=== PATIENT | male | born 1950 | race Two or more races ===

== ENCOUNTER 2020-06-14 17:29 | Inpatient (IN) | payer MEDICARE, OTHER ==
[~2020-06-14] VITALS: Ht 167.6 cm; Wt 76.5 kg
[2020-06-14 17:56] VITALS: BP 171/95
--- NOTE | 2020-06-14 17:56 | NUR ---
ED Nurse Note: Pt from a [facility] and was brought in by ambulance due to abdominal pain, decreased in appetite and with constipation. Last bowel movement was 4 days ago. Noted abdominal distension. Pt is AAO x4, follows commands with non labored breathing.
[2020-06-14 18:22] LABS: BASOPHILS % (AUTO) 1.3 % (0.0-2.0); EOSINOPHILS % (AUTO) 0.2 % (0.0-3.0); HEMATOCRIT 39.3 % (42.0-52.0); HEMOGLOBIN 13.3 G/DL (14.2-18.0); LYMPHOCYTES % (AUTO) 11.7 % (20.0-45.0); MEAN CORPUSCULAR VOLUME 85 FL (80-99); MONOCYTES % (AUTO) 7.8 % (1.0-10.0); PLATELET COUNT 257 K/UL (150-450); RED BLOOD COUNT 4.62 M/UL (4.70-6.10); WHITE BLOOD COUNT 12.4 K/UL (4.8-10.8)
[2020-06-14 18:31] LABS: ANION GAP 14 mmol/L (5-15); BLOOD UREA NITROGEN 70 mg/dL (7-18); CALCIUM 9.4 MG/DL (8.5-10.1); CARBON DIOXIDE 28 MMOL/L (21-32); CHLORIDE 87 MMOL/L (98-107); CREATININE 4.9 MG/DL (0.55-1.30); POTASSIUM 3.1 MMOL/L (3.5-5.1); SODIUM 129 MMOL/L (136-145)
[2020-06-14 18:38] LABS: AMMONIA 20 umol/L (11-32)
[2020-06-14 18:39] LABS: ALANINE AMINOTRANSFERASE 36 U/L (12-78); ALBUMIN 4.3 G/DL (3.4-5.0); ALBUMIN/GLOBULIN RATIO 1.2 (1.0-2.7); ALKALINE PHOSPHATASE 78 U/L (46-116); ASPARTATE AMINO TRANSFERASE 31 U/L (15-37); BILIRUBIN,TOTAL 0.4 MG/DL (0.2-1.0)
[2020-06-14] MEDS ORDERED: Acetaminophen 500mg (ES) tab ORAL ONE (18:45)
[2020-06-14] MEDS ORDERED: cefTRIAXone 2 GM in NS 55 ML IVPB ONE (18:45)
--- NOTE | 2020-06-14 19:08 | NUR ---
HAND-OFF: Report given to irene DUQUE.
--- NOTE | 2020-06-14 19:20 | NUR ---
ED Nurse Note: Patient's pulse oximetry reading on room air was 91%. Applied oxygen 2L via N/C and improved to 96%. ERMD made aware.
[2020-06-14] MEDS ORDERED: Pantoprazole Inj IVP ONE (20:00)
[2020-06-14] MEDS ORDERED: Miralax 17gm pkt ORAL PRN (20:30)
[2020-06-14] MEDS ORDERED: Nitroglycerin Subl 0.4mg tab SL PRN (20:30)
[2020-06-14] MEDS ORDERED: Labetalol 5mg/ml 20ml vial IV PRN (20:45)
[2020-06-14] MEDS ORDERED: Enalaprilat 2.5mg/2ml Inj IV PRN (20:45)
--- NOTE | 2020-06-14 20:50 | NUR ---
ED Nurse Note: US at bedside
[2020-06-14 21:00] VITALS: BP 145/80
[2020-06-14] MEDS: Heparin 5000 units/ml inj SUBQ SCH (21:00)
--- NOTE | 2020-06-14 21:04 | NUR ---
ED Nurse Note: urine sent to lab
[2020-06-14 21:10] LABS: APPEARANCE,URINE CLEAR; BILIRUBIN, URINE NEGATIVE (NEGATIVE); COLOR,URINE PALE YELLOW; GLUCOSE, URINE (UA) NEGATIVE (NEGATIVE); KETONES,URINE NEGATIVE (NEGATIVE); LEUKOCYTE ESTERASE ,URINE 1+ (NEGATIVE); NITRITE,URINE NEGATIVE (NEGATIVE); PH,URINE 5 (4.5-8.0); PROTEIN,URINE NEGATIVE (NEGATIVE); UROBILINOGEN,URINE NORMAL MG/DL (0.0-1.0)
--- NOTE | 2020-06-14 21:22 | Diagnostic Imaging Report ---
EXAM: CT Abdomen and Pelvis Without Intravenous Contrast CLINICAL HISTORY: PAIN Pt from a [facility] and was brought in by ambulance due to abdominal pain, decreased in appetite and with constipation. Last bowel movement was 4 days ago. Noted abdominal distension. Pt is AAO x4, follows commands with non labored breathing. TECHNIQUE: Axial computed tomography images of the abdomen and pelvis without intravenous contrast. CTDI is 8 mGy and DLP is 491 mGy-cm. One or more of the following dose reduction techniques were used: automated exposure control, adjustment of the mA and/or kV according to patient size, use of iterative reconstruction technique. Coronal and sagittal reformatted images were created and reviewed. COMPARISON: No relevant prior studies available. FINDINGS: Lung bases: Respiratory motion artifact limits evaluation of the lung bases, patchy ill-defined groundglass or mosaic attenuation of the lungs and dependent atelectasis present. ABDOMEN: Liver: Unremarkable. Gallbladder and bile ducts: Cholelithiasis without findings to suggest acute cholecystitis. No ductal dilation. Pancreas: Unremarkable. No ductal dilation. Spleen: Unremarkable. No splenomegaly. Adrenals: Unremarkable. No mass. Kidneys and ureters: Massive prostatomegaly with severely distended urinary bladder and bilateral moderate hydroureteronephrosis could represent obstructive uropathy. Stomach and bowel: Distended fluid-filled large and small bowel loops suggests ileus, no findings to suggest suzi obstruction. Ascending colon diameter 8 cm. No mucosal thickening. PELVIS: Appendix: No findings to suggest acute appendicitis. Bladder: Unremarkable. No stones. Reproductive: Prostate 7 cm transverse. ABDOMEN and PELVIS: Intraperitoneal space: Unremarkable. No free air. No significant fluid collection. Bones/joints: No acute fracture. No dislocation. Soft tissues: Unremarkable. Vasculature: Unremarkable. No abdominal aortic aneurysm. Lymph nodes: Unremarkable. No enlarged lymph nodes. IMPRESSION: 1. Massive prostatomegaly with severely distended urinary bladder and bilateral moderate hydroureteronephrosis could represent obstructive uropathy. 2. Recommend James catheterization. 3. Distended fluid-filled large and small bowel loops suggests ileus, no findings to suggest suzi obstruction. 4. Respiratory motion artifact limits evaluation of the lung bases, patchy ill-defined groundglass or mosaic attenuation of the lungs and dependent atelectasis present. 5. Cholelithiasis without findings to suggest acute cholecystitis.
--- NOTE | 2020-06-14 21:23 | Emergency Room Report ---
History of Present Illness General Chief Complaint: Abdominal Pain Source: Patient, EMS Present Illness HPI History of present illness: 70M unknown PMHx BIB board and care. Patient is complaining of abdominal distention. Also complains of dark stools, nausea, and cough. The patient's symptoms were gradual onset, severity was moderate, duration since several days. Denies fevers, chills, vomiting, chest pain, phlegm or SOB. Past medical history: unable to determine Past surgical history: denies Smoking: denies Alcohol use: previous but quit Drug use: denies Review of systems: CONST: No fevers or chills, No night sweats PULMONARY: No productive cough, No shortness of breath CARDIAC: No chest pain, No palpitations GI: + vomiting, dark stools; No diarrhea , No_BRBPR : No dysuria, No hematuria, No discharge NEURO: No new_focal_weakness_or_numbness, No confusion, No vision changes 14 point Review of Systems is otherwise negative except per HPI Physical Exam: GENERAL: Awake_alert_ nontoxic, no acute distress Spo2 90% on RA, normal EYES: Extraocular muscles are intact. Conjunctivae clear. Lids without swelling ENT: External nose and ear normal_in_appearance. Oropharynx clear. Head_ atraumatic, Moist_oral_mucosa NECK: No JVD. No meningismus. No thyromegaly. Supple. Trachea midline RESP: Normal respiratory effort. Symmetric rise. No stridor. Clear_to_ auscultation_No_rales_No_wheezes CARDIAC: Regular rate and regular rhythm on_auscultation No_significant pedal edema. ABDOMEN: Soft. Markedly distended. Diffuse TTP. Nontender_No_rebound_or_ guarding. NO CVA TTP. MSK: Normal muscle tone, without rigidity. Extremities without asymmetric deformity or swelling. SKIN: Warm and dry. No visible cyanosis or pallor NEUROLOGIC: Alert, oriented x3. Motor_and_sensation_grossly_intact. No truncal ataxia. Gait_normal Psych: Normal mood and affect, normal judgment and insight - COORDINATION OF CARE Case was discussed with: Patient, Patient's Physician Any labs [and imaging] that were ordered were interpreted as part of the medical decision making: Medical Decision Making/Plan: Differential diagnosis includes appendicitis, diverticulitis, SBO versus ileus, kidney stone, small bowel obstruction, volvulus, AAA, pancreatitis, among others. 70-year-old male presents with abdominal distention. Bedside ultrasound shows her trace ascites. CT scan shows small bowel obstruction and severe hydronephrosis and BPH. NG tube was placed with gastric contents suctions. James placed with retrieval at 1500 mL retreived. Patient was noted to have melena during ER visit. He was given Protonix and Rocephin. Labs are concerning for new onset renal failure with creatinine of 4.9. There is no previous creatinine to compare to. Suspect post obstructive. James placed. He is also mildly hyponatremic at 129. I spoke with Dr. Whitehead, and reviewed the patients presentation, workup, results, and treatment. They will admit the patient for further care and evaluation, and assume care of the patient at this time. Allergies: Coded Allergies: No Known Allergies (Unverified , 06/14/20) COVID-19 Screening Contact w/high risk pt: Yes Experienced COVID-19 symptoms?: Yes COVID-19 Testing performed OCEAN FREIGHT MANAGER: No Nursing Documentation-[facility] Past Medical History: No History, Except For Hx Diabetes: Yes Physical Exam Vital Signs Date Time Temp Pulse Resp B/P (MAP) Pulse Ox O2 Delivery O2 Flow Rate FiO2 06/14/20 17:46 98.2 78 16 142/85 (104) 90 Room Air Sp02 EP Interpretation: reviewed, normal Medical Decision Making Diagnostic Impression: Primary Impression: SBO (small bowel obstruction) Additional Impressions: Abdominal pain Renal failure Hyponatremia Melena Hydronephrosis Pneumonia Prostatitis Enlarged prostate EKG Diagnostic Results EKG Time: 18:43 PA Scribe Text 12-lead EKG (interpreted by me) Time: 1842 Indication: [Rhythm analysis] Tracing visualized and Interpreted by me. Rhythm: [Normal sinus rhythm] Rate: 100 bpm QTc: 436 Morphology: No_significant_ST_elevations_or_depressions, No STEMI Impression: Normal_sinus_rhythm_without_significant_abnormality; LVH; Q waves inferior leads Rhythm Strip Diag. Results Rhythm Strip Time: 21:21 Rate: 106 Rhythm: other - Tachycardia Other Impression Tachycardia CT/MRI/US Diagnostic Results CT/MRI/US Diagnostic Results : Impression CT Abdomen and Pelvis Without Intravenous Contrast CLINICAL HISTORY: PAIN Pt from a nursing home and was brought in by ambulance due to abdominal pain, decreased in appetite and with constipation. Last bowel movement was 4 days ago. Noted abdominal distension. Pt is AAO x4, follows commands with non labored breathing. COMPARISON: No relevant prior studies available. FINDINGS: Lung bases: Respiratory motion artifact limits evaluation of the lung bases, patchy ill-defined groundglass or mosaic attenuation of the lungs and dependent atelectasis present. ABDOMEN: Liver: Unremarkable. Gallbladder and bile ducts: Cholelithiasis without findings to suggest acute cholecystitis. No ductal dilation. Pancreas: Unremarkable. No ductal dilation. Spleen: Unremarkable. No splenomegaly. Adrenals: Unremarkable. No mass. Kidneys and ureters: Massive prostatomegaly with severely distended urinary bladder and bilateral moderate hydroureteronephrosis could represent obstructive uropathy. Stomach and bowel: Distended fluid-filled large and small bowel loops suggests ileus, no findings to suggest suzi obstruction. Ascending colon diameter 8 cm. No mucosal thickening. PELVIS: Appendix: No findings to suggest acute appendicitis. Bladder: Unremarkable. No stones. Reproductive: Prostate 7 cm transverse. ABDOMEN and PELVIS: Intraperitoneal space: Unremarkable. No free air. No significant fluid collection. Bones/joints: No acute fracture. No dislocation. Soft tissues: Unremarkable. Vasculature: Unremarkable. No abdominal aortic aneurysm. Lymph nodes: Unremarkable. No enlarged lymph nodes. IMPRESSION: 1. Massive prostatomegaly with severely distended urinary bladder and bilateral moderate hydroureteronephrosis could represent obstructive uropathy. 2. Recommend James catheterization. 3. Distended fluid-filled large and small bowel loops suggests ileus, no findings to suggest suzi obstruction. 4. Respiratory motion artifact limits evaluation of the lung bases, patchy ill-defined groundglass or mosaic attenuation of the lungs and dependent atelectasis present. 5. Cholelithiasis without findings to suggest acute cholecystitis. Diagnostic POCUS Bedside Ultrasound Diagnostics: Bedside US Exam performed: FAST Exam Indication: Abdominal Pain Number of Views: Limited FAST Exam Findings: No fluid morison's pouch, No fluid splenorenal rec., No Fluid Pelv. Cul-de-sac, No pericardial effusion, No acute findings Impression: No acute findings Electronically Signed by: China aCrvalho DO Reevaluation Time: 21:21 Last Vital Signs Date Time Temp Pulse Resp B/P (MAP) Pulse Ox O2 Delivery O2 Flow Rate FiO2 06/14/20 17:56 98.2 106 15 171/95 95 Room Air Status: improved Disposition: ADMITTED INPATIENT Admit Decision Time: 20:30 Condition: Stable Referrals: NOT CHOSEN IPA/,REFERRING (PCP) China Carvalho D.O. Jun 14, 2020 21:23
[2020-06-14 21:35] LABS: CREATINE KINASE 299 U/L (26-308)
--- NOTE | 2020-06-14 21:54 | NUR ---
ED Nurse Note: 18F NG tube inserted in R nostril without complication, taped at 55cm. Serous sanginous fluid on wall suction. 16F hardin inserted as well, drained 1500mls of dark karli urine. pt tolerated well.
[2020-06-14] MEDS: NovoLOG Insulin Flexpen SUBQ SCH (22:00)
--- NOTE | 2020-06-14 22:30 | NUR ---
ED Nurse Note: xray at bedside
--- NOTE | 2020-06-14 22:59 | Diagnostic Imaging Report ---
EXAM: XR Abdomen, 2 Views CLINICAL HISTORY: NGT TECHNIQUE: Frontal view of the abdomen/pelvis with upright view of the abdomen. COMPARISON: Same-day CT abdomen and pelvis FINDINGS: Lower thorax: Bilateral retrocardiac ill-defined opacities represent dependent atelectasis, without or with some component of consolidation. Low lung volumes with bronchovascular crowding, lung structures would be better visualized on dedicated chest radiographs. Intraperitoneal space: No free air. Gastrointestinal tract: Diffuse small and large bowel gaseous distention consistent with findings on CT representing likely ileus. Bones/joints: Unremarkable. Tubes, lines and devices: Enteric tube with tip and proximal sideport below the gastroesophageal junction. IMPRESSION: 1. Enteric tube with tip and proximal sideport below the gastroesophageal junction. 2. Diffuse small and large bowel gaseous distention consistent with findings on CT representing likely ileus. 3. Bilateral retrocardiac ill-defined opacities represent dependent atelectasis, without or with some component of consolidation. 4. Low lung volumes with bronchovascular crowding, lung structures would be better visualized on dedicated chest radiographs.
[2020-06-14 23:00] VITALS: BP 137/75
--- NOTE | 2020-06-14 23:00 | NUR ---
TRANSFER TO FLOOR: Patient transferred to as ordered, per Dr Negro. Report given to NETO Gross. Belongings and medications given to . Family and or S/O informed of transfer.
[2020-06-14 23:20] VITALS: BP 169/79
--- NOTE | 2020-06-14 23:20 | NUR ---
NURSE NOTES: Received pt. from NETO Baltazar - pt. brought up form ER, pt. appears to be A/o x's 3- Micronesian speaking- full body assessment done-skin intact but generalized dryness noted, desk monitor placed, call light within easy reach, bed alarm on, side rails up times 3- pt. aware not to get out of bed as he is a fall risk, HOB elevated and safety brakes engaged. Pt. teaching done and oriented to room- VS taken - will administer b/p meds per eMAR protocol as b/p is 169/79- pt. connected to continuous pulse ox monitoring- pulse ox at 93%- no distress noted, pt. has right NGT set to low continuous suction- bloody secretions noted in tubing and canister- Heparin not administered, James intact and draining to gravity- pinkish urine noted-will continue to monitor patient, left AC 20 G IV intact and patent, belongings list checked and signed by pt.- pt. has $13 in kang- verified by another RN Sruthi- pt. wishes to keep at bedside- Nasal spray sent down to ER with Leonides- pt. states he has prescription home medications- but does not remember them. safety measures continued, will continue with plan of care. Addendum: 06/14/20 at 2358 by MARILYNN NOONAN RN RN NGT at 55cm- awaiting for KUB results.
--- NOTE | 2020-06-14 23:24 | NUR ---
NURSE NOTES: Heparin not administered as pt. is set to low continuous suction and has blood noted in suction canister and tubing. NovoLog not administered as pt. is NPO BS 156- will continue to monitor pt. and with plan of care.
--- NOTE | 2020-06-14 23:28 | NUR ---
NURSE NOTES: left message for DR. Penaloza- if he would like to continue ER order for NGT low continuos suction- awaiting for call back from doctor.
[2020-06-15] VITALS (7 sets, daily range): BP systolic 110–161; BP diastolic 53–72
--- NOTE | 2020-06-15 00:10 | NUR ---
NURSE NOTES: pt. appears to be sating well on 2L NC at 97%- no distress noted- will continue to monitor pt. and with plan of care.
--- NOTE | 2020-06-15 00:14 | NUR ---
NURSE NOTES: Received message from DR. Penaloza- okay to continue ER order for low continuous suction via NGT right Nare- also made doctor aware pt. is sating now 88-90%- okay for 2L NC for oxygen therapy.
[2020-06-15] MEDS: NovoLOG Insulin Flexpen SUBQ SCH ×4 (05:32→21:00)
[2020-06-15 06:44] LABS: BASOPHILS % (AUTO) 0.7 % (0.0-2.0); EOSINOPHILS % (AUTO) 1.1 % (0.0-3.0); HEMOGLOBIN 12.4 G/DL (14.2-18.0); LYMPHOCYTES % (AUTO) 13.5 % (20.0-45.0); MEAN CORPUSCULAR VOLUME 85 FL (80-99); MONOCYTES % (AUTO) 12.3 % (1.0-10.0); NEUTROPHILS % (AUTO) 72.4 % (45.0-75.0); PLATELET COUNT 214 K/UL (150-450); RED BLOOD COUNT 4.34 M/UL (4.70-6.10); RED CELL DISTRIBUTION WIDTH 12.6 % (11.6-14.8); WHITE BLOOD COUNT 8.8 K/UL (4.8-10.8)
--- NOTE | 2020-06-15 07:07 | NUR ---
HAND-OFF: Report given to NETO Mckenna - pt. remains stable and no signs of distress noted. Aware to f/u on potassium trending down. Addendum: 06/15/20 at 0710 by MARILYNN NOONAN RN RN aware to f/u on any abnormal am labs.
--- NOTE | 2020-06-15 07:09 | NUR ---
NURSE NOTES: Received report from NETO Khan. Pt is stable and sleeping in bed with no S/S of distress. IV on L AC 20g is dry, intact and asymptomatic running NS @ 50cc. Pt on 2L NC saturating at 97%. Pt is with R NGT on continuous low suction, dark blood noted in cannister.
[2020-06-15 08:05] LABS: CREATININE 1.5 MG/DL (0.55-1.30); POTASSIUM 2.9 MMOL/L (3.5-5.1); SODIUM 140 MMOL/L (136-145)
[2020-06-15 08:41] LABS: ANION GAP 11 mmol/L (5-15); BILIRUBIN,TOTAL 0.4 MG/DL (0.2-1.0); BLOOD UREA NITROGEN 37 mg/dL (7-18); CALCIUM 8.3 MG/DL (8.5-10.1); CARBON DIOXIDE 32 MMOL/L (21-32); CHLORIDE 97 MMOL/L (98-107)
[2020-06-15 08:42] LABS: ALANINE AMINOTRANSFERASE 32 U/L (12-78); ALBUMIN 3.1 G/DL (3.4-5.0); ALKALINE PHOSPHATASE 62 U/L (46-116); AMYLASE 23 U/L (25-115); ASPARTATE AMINO TRANSFERASE 25 U/L (15-37)
[2020-06-15] MEDS: Heparin 5000 units/ml inj SUBQ SCH ×2 (09:00→20:09)
--- NOTE | 2020-06-15 09:19 | NUR ---
NURSE NOTES: Left message and notified Dr. Penaloza regarding patient's potassium is 2.9. Awaiting for response.
--- NOTE | 2020-06-15 10:34 | Diagnostic Imaging Report ---
EXAM: ULTRASOUND US ABD Complete CLINICAL HISTORY: Reason For Exam: ABD PAIN. COMPARISON: None TECHNIQUE: Ultrasound examination of the abdomen includes grayscale images, and color and spectral doppler analysis. FINDINGS: Study limited due to body habitus and overlying bowel gas. Visualized portions of the liver appears slightly echogenic likely fatty change. No ductal dilatation appreciated. The spleen is within normal limits. Shadowing stone noted at the neck of the gallbladder. Common bile duct measures 4 mm. Pancreas as well as aorta and cava are obscured. Mild hydronephrosis demonstrated bilaterally. Aorta and cava are obscured. Urinary bladder is grossly unremarkable. IMPRESSION: STUDY LIMITED DUE TO BODY HABITUS AND OVERLYING BOWEL GAS. FATTY CHANGE NOTED IN THE VISUALIZED PORTIONS OF THE LIVER. GALLSTONE. MILD BILATERAL HYDRONEPHROSIS. PANCREAS AND AORTA AND CAVA ARE OBSCURED.
--- NOTE | 2020-06-15 11:00 | NUR ---
NURSE NOTES: Dr. Penaloza ordered 40mEQ KCL IV once for patient. Order acknowledged and carried out.
--- NOTE | 2020-06-15 11:37 | Consultation ---
Consult Note Consult Note I am asked to evaluate the patient at the request of Dr. Negor for renal failure. Patient seen in room 211 bed 1. Discussed with RN. 70M unknown PMHx BIB board and care. Patient is complaining of abdominal distention. Also complains of dark stools, nausea, and cough. The patient's symptoms were gradual onset, severity was moderate, duration since several days. Denies fevers, chills, vomiting, chest pain, phlegm or SOB. After an insertion of a James catheter in the emergency room, abdominal distention much improved COVID-19 Screening Contact w/high risk pt: Yes Experienced COVID-19 symptoms?: Yes COVID-19 Testing performed ASSOCIATE SOFTWARE DEVELOPER: No Hx Diabetes: Yes Vital Signs Date Time Temp Pulse Resp B/P (MAP) Pulse Ox O2 Delivery O2 Flow Rate FiO2 06/14/20 17:46 98.2 78 16 142/85 (104) 90 Room Air Physical Exam: GENERAL: Awake_alert_ nontoxic, no acute distress Spo2 90% on RA, normal EYES: Extraocular muscles are intact. Conjunctivae clear. ENT: External nose and ear normal_in_appearance. Oropharynx clear. Head_ atraumatic, Moist_oral_mucosa NECK: No JVD. No meningismus. No thyromegaly. Supple. Trachea midline RESP: Poor inspiratory effort t. Decreased breath sounds over the bases. No stridor. CARDIAC: Regular rate and regular rhythm on_auscultation No_significant pedal edema. ABDOMEN: Soft. Markedly distended. Diffuse TTP. Nontender_No_rebound_or_ guarding. NO CVA TTP. MSK: Normal muscle tone, without rigidity. Extremities without asymmetric deformity or swelling. SKIN: Warm and dry. No visible cyanosis or pallor NEUROLOGIC: Alert, oriented x3. Motor_and_sensation_grossly_intact. . Assessment/Plan Acute renal failure, most likely secondary to urinary outlet obstruction. Unclear if patient has underlying chronic kidney disease. Severe prostatic hypertrophy and BPH Abdominal pain, distention, possible SBO Electrolyte imbalance, hyponatremia Evidence of melena, possible upper GI bleed Possible pneumonia Cholelithiasis Suggestion: Hydration Correct electrolytes Monitor renal parameters and electrolytes Monitor H&H Kidney ultrasound 2D echocardiogram Per consultants Per orders IMPRESSION: 1. Massive prostatomegaly with severely distended urinary bladder and bilateral moderate hydroureteronephrosis could represent obstructive uropathy. 2. Recommend James catheterization. 3. Distended fluid-filled large and small bowel loops suggests ileus, no findings to suggest suzi obstruction. 4. Respiratory motion artifact limits evaluation of the lung bases, patchy ill-defined groundglass or mosaic attenuation of the lungs and dependent atelectasis present. 5. Cholelithiasis without findings to suggest acute cholecystitis. I spent an additional 36 minutes on review of medical records including prior hospital records,consult notes, progress notes, procedures ,imaging labs, hemodynamics, and other clinical documentation. Over 35 min Seth Goddard MD Jun 15, 2020 11:37
[2020-06-15] MEDS: Pantoprazole Inj IVP SCH ×2 (12:00→21:26)
--- NOTE | 2020-06-15 12:07 | Consultation ---
History of Present Illness General Date patient seen: Jun 15, 2020 Chief Complaint: Abdominal Pain Present Illness HPI 70 year old male with hx of DM, HtN, Assisted living resident brought in by ambulance with CC of abdominal pain. Pt had a Ct of abdomen in ER showing SBO and hydronephrosis. Pt was also found to be in renal failure. Pt is admitted to telemetry for further management. Allergies: Coded Allergies: No Known Allergies (Unverified , 06/14/20) Patient History Healthcare decision maker Resuscitation status Advanced Directive on File Past Medical/Surgical History Past Medical/Surgical History: (1) History of diabetes mellitus (2) History of hypertension Review of Systems All Other Systems: negative except mentioned in HPI Physical Exam General Appearance: WD/WN, no apparent distress Lines, tubes and drains: peripheral HEENT: normocephalic, atraumatic Neck: non-tender, normal alignment, supple Respiratory/Chest: chest wall non-tender, lungs clear Breasts: no masses Cardiovascular/Chest: normal peripheral pulses Abdomen: normal bowel sounds Genitourinary/Rectal: normal genital exam Extremities: normal range of motion Skin Exam: normal pigmentation Last 24 Hour Vital Signs Date Time Temp Pulse Resp B/P (MAP) Pulse Ox O2 Delivery O2 Flow Rate FiO2 06/15/20 11:28 162/77 06/15/20 09:26 Nasal Cannula 2.0 06/15/20 08:00 97.7 97 20 149/68 (95) 97 06/15/20 08:00 99 06/15/20 05:30 98 149/63 (91) 06/15/20 04:00 98.8 82 18 161/72 (101) 97 06/15/20 03:58 163/72 06/15/20 03:37 93 06/15/20 00:00 97.1 80 18 151/68 (95) 97 06/14/20 23:32 169/79 06/14/20 23:31 82 06/14/20 23:30 Nasal Cannula 2.0 06/14/20 23:20 96.9 82 18 169/79 (109) 93 06/14/20 23:00 98.0 87 16 137/75 94 Room Air 06/14/20 23:00 98.1 87 16 137/85 94 Room Air 06/14/20 21:00 98.0 98 16 145/80 98 Room Air 2.0 06/14/20 17:56 98.2 106 15 171/95 95 Room Air 06/14/20 17:56 78 16 Room Air 06/14/20 17:46 98.2 78 16 142/85 (104) 90 Room Air Intake and Output 06/14/20 06/15/20 19:00 07:00 Intake Total 383 ml Output Total 2375 ml Balance -1992 ml Intake IV Total 383 ml Output Urine Total 2375 ml # Bowel Movements 1 1 Laboratory Tests Test 06/14/20 18:12 06/14/20 20:40 06/15/20 06:10 06/15/20 11:39 White Blood Count 12.4 K/UL (4.8-10.8) H 8.8 K/UL (4.8-10.8) Red Blood Count 4.62 M/UL (4.70-6.10) L 4.34 M/UL (4.70-6.10) L Hemoglobin 13.3 G/DL (14.2-18.0) L 12.4 G/DL (14.2-18.0) L Hematocrit 39.3 % (42.0-52.0) L 37.0 % (42.0-52.0) L Mean Corpuscular Volume 85 FL (80-99) 85 FL (80-99) Mean Corpuscular Hemoglobin 28.8 PG (27.0-31.0) 28.5 PG (27.0-31.0) Mean Corpuscular Hemoglobin Concent 34.0 G/DL (32.0-36.0) 33.4 G/DL (32.0-36.0) Red Cell Distribution Width 13.0 % (11.6-14.8) 12.6 % (11.6-14.8) Platelet Count 257 K/UL (150-450) 214 K/UL (150-450) Mean Platelet Volume 8.0 FL (6.5-10.1) 7.9 FL (6.5-10.1) Neutrophils (%) (Auto) 79.0 % (45.0-75.0) H 72.4 % (45.0-75.0) Lymphocytes (%) (Auto) 11.7 % (20.0-45.0) L 13.5 % (20.0-45.0) L Monocytes (%) (Auto) 7.8 % (1.0-10.0) 12.3 % (1.0-10.0) H Eosinophils (%) (Auto) 0.2 % (0.0-3.0) 1.1 % (0.0-3.0) Basophils (%) (Auto) 1.3 % (0.0-2.0) 0.7 % (0.0-2.0) Prothrombin Time 10.7 SEC (9.30-11.50) 11.3 SEC (9.30-11.50) Prothromb Time International Ratio 1.0 (0.9-1.1) 1.0 (0.9-1.1) Activated Partial Thromboplast Time 26 SEC (23-33) 27 SEC (23-33) Sodium Level 129 MMOL/L (136-145) L 140 MMOL/L (136-145) # Potassium Level 3.1 MMOL/L (3.5-5.1) L 2.9 MMOL/L (3.5-5.1) L Chloride Level 87 MMOL/L (98-107) L 97 MMOL/L (98-107) L Carbon Dioxide Level 28 MMOL/L (21-32) 32 MMOL/L (21-32) Anion Gap 14 mmol/L (5-15) 11 mmol/L (5-15) Blood Urea Nitrogen 70 mg/dL (7-18) H 37 mg/dL (7-18) H Creatinine 4.9 MG/DL (0.55-1.30) H 1.5 MG/DL (0.55-1.30) #H Estimat Glomerular Filtration Rate 11.8 mL/min (>60) 46.1 mL/min (>60) Glucose Level 190 MG/DL (74-106) H 138 MG/DL (74-106) H Uric Acid 11.6 MG/DL (2.6-7.2) H Calcium Level 9.4 MG/DL (8.5-10.1) 8.3 MG/DL (8.5-10.1) L Total Bilirubin 0.4 MG/DL (0.2-1.0) 0.4 MG/DL (0.2-1.0) Aspartate Amino Transf (AST/SGOT) 31 U/L (15-37) 25 U/L (15-37) Alanine Aminotransferase (ALT/SGPT) 36 U/L (12-78) 32 U/L (12-78) Alkaline Phosphatase 78 U/L (46-116) 62 U/L (46-116) Ammonia 20 umol/L (11-32) Total Creatine Kinase 299 U/L (26-308) Troponin I 0.000 ng/mL (0.000-0.056) Total Protein 7.9 G/DL (6.4-8.2) 6.3 G/DL (6.4-8.2) L Albumin 4.3 G/DL (3.4-5.0) 3.1 G/DL (3.4-5.0) L Globulin 3.6 g/dL 3.2 g/dL Albumin/Globulin Ratio 1.2 (1.0-2.7) 1.0 (1.0-2.7) Lipase 201 U/L (73-393) 92 U/L (73-393) Urine Color Pale yellow Urine Appearance Clear Urine pH 5 (4.5-8.0) Urine Specific [place] 1.015 (1.005-1.035) Urine Protein Negative (NEGATIVE) Urine Glucose (UA) Negative (NEGATIVE) Urine Ketones Negative (NEGATIVE) Urine Blood 3+ (NEGATIVE) H Urine Nitrite Negative (NEGATIVE) Urine Bilirubin Negative (NEGATIVE) Urine Urobilinogen Normal MG/DL (0.0-1.0) Urine Leukocyte Esterase 1+ (NEGATIVE) H Urine RBC 2-4 /HPF (0 - 0) H Urine WBC 15-20 /HPF (0 - 0) H Urine Squamous Epithelial Cells None /LPF (NONE/OCC) Urine Bacteria Few /HPF (NONE) Urine Eosinophils None seen (NONE SEEN) Urine Osmolality 396 mOsm/kg (429-449) L Urine Random Creatinine Pending Urine Random Microalbumin Pending Urine Random Sodium < 20 mmol/L (20-110) L Urine Microalbumin/Creatinine Ratio Pending Hemoglobin A1c 6.1 % (4.3-6.0) H Amylase Level 23 U/L (25-115) L Thyroid Stimulating Hormone (TSH) 0.183 uiU/mL (0.358-3.740) POC Whole Blood Glucose 122 MG/DL (74-106) H Microbiology Date/Time Source Procedure Growth Status 06/14/20 21:55 Nasopharynx SARS-CoV-2 RdRp Gene Assay - Final Complete 06/14/20 20:40 Urine,Clean Catch Urine Culture - Preliminary NO GROWTH Resulted 06/14/20 19:00 Rectum Received Height (Feet): 5 Height (Inches): 6.00 Weight (Pounds): 168 Medications Current Medications Medications (Trade) Dose Ordered Sig/Chaim Route PRN Reason Start Time Stop Time Status Last Admin Dose Admin Acetaminophen (Tylenol) 650 mg Q4H PRN ORAL fever (T>100.5F) 06/14/20 20:30 07/14/20 20:29 Dextrose (Dextrose 50%) 25 ml Q30M PRN IV Hypoglycemia 06/14/20 20:30 09/12/20 20:29 Dextrose (Dextrose 50%) 50 ml Q30M PRN IV Hypoglycemia 06/14/20 20:30 09/12/20 20:29 Dextrose/ Electrolytes 1,000 ml @ 75 mls/hr [id number] IV 06/15/20 13:00 07/15/20 12:59 Diphenhydramine HCl (Benadryl) 25 mg Q6H PRN ORAL Itching/Pruritis 06/14/20 20:30 07/14/20 20:29 Heparin Sodium (Porcine) (Heparin 5000 units/ml) 5,000 units EVERY 12 HOURS SUBQ 06/14/20 21:00 07/29/20 20:59 Hydralazine HCl (Apresoline) 10 mg Q4H PRN IV BP over 160 systolic 06/15/20 12:00 09/13/20 11:59 Insulin Aspart (NovoLOG) BEFORE MEALS AND HS SUBQ 06/14/20 22:00 09/12/20 21:59 Nitroglycerin (Ntg) 0.4 mg Q5M X 3 DOSES PRN SL Prn Chest Pain 06/14/20 20:30 07/14/20 20:29 Ondansetron HCl (Zofran) 4 mg Q6H PRN IVP Nausea & Vomiting 06/14/20 20:30 07/14/20 20:29 Polyethylene Glycol (Miralax) 17 gm HSPRN PRN ORAL Constipation 06/14/20 20:30 07/14/20 20:29 Potassium Chloride 100 ml @ 100 mls/hr Q1H IVPB 06/15/20 12:00 06/15/20 14:59 06/15/20 11:35 Temazepam (Restoril) 15 mg HSPRN PRN ORAL Insomnia 06/14/20 20:30 06/21/20 20:29 Assessment/Plan Problem List: (1) Intractable abdominal pain ICD Codes: R10.9 - Unspecified abdominal pain SNOMED: 90602104 (2) SBO (small bowel obstruction) ICD Codes: K56.609 - Unspecified intestinal obstruction, unspecified as to partial versus complete obstruction SNOMED: 090808155 (3) History of diabetes mellitus ICD Codes: Z86.39 - Personal history of other endocrine, nutritional and metabolic disease SNOMED: 326952641 (4) History of hypertension ICD Codes: Z86.79 - Personal history of other diseases of the circulatory system SNOMED: 569015256 Assessment/Plan: NPOI IV fluids sliding scale check electrolytes renal evaluation GI and surgery to see get pts medication list from the assisted living Charlene Penaloza MD Jun 15, 2020 12:07
[2020-06-15] MEDS: D5NS w/KCl 40mEq 1000ml 1,000 ML IV SCH (13:25)
[2020-06-15] MEDS ORDERED: METFORMIN500 MG/5 M PO (14:21)
[2020-06-15] MEDS ORDERED: ATROPINE SULFAT15 ML OP (14:21)
[2020-06-15] MEDS ORDERED: AMLODIPINE BESYL5 MG ORAL (14:21)
[2020-06-15] MEDS ORDERED: MULTIVITAMINS1 EAC2 ORAL (14:21)
[2020-06-15] MEDS ORDERED: ZOFRAN4 M1 ORAL (14:21)
[2020-06-15] MEDS ORDERED: FINASTERIDE5 MG ORAL (14:21)
[2020-06-15] MEDS ORDERED: LOSARTAN POTAS100 MG ORAL (14:21)
[2020-06-15] MEDS ORDERED: GABAPENTIN100 MG ORAL (14:21)
[2020-06-15] MEDS ORDERED: BENAZEPRIL HCL10 MG ORAL (14:21)
[2020-06-15] MEDS ORDERED: MORPHINE IR15 MG ORAL (14:21)
[2020-06-15] MEDS ORDERED: DESYREL50 MG PO (14:21)
[2020-06-15] MEDS ORDERED: HYDRALAZINE HCL25 M1 ORAL (14:21)
[2020-06-15] MEDS ORDERED: FAMOTIDINE40 MG/5 ML PO (14:21)
[2020-06-15] MEDS ORDERED: SIMVASTATIN20 MG ORAL (14:21)
[2020-06-15] MEDS ORDERED: BENADRYL A12.5 MG/5 ORAL (14:21)
[2020-06-15] MEDS ORDERED: FLOMAX0.4 MG ORAL (14:21)
[2020-06-15] MEDS ORDERED: NAPROXEN250 M1 PO (14:21)
[2020-06-15] MEDS ORDERED: ATIVAN0.5 MG ORAL (14:21)
[2020-06-15] MEDS ORDERED: ASPIRIN81 M3 PO (14:21)
[2020-06-15] MEDS ORDERED: MONTELUKAST SOD10 MG ORAL (14:21)
[2020-06-15] MEDS ORDERED: DOCUSATE SODIU100 MG ORAL (14:21)
--- NOTE | 2020-06-15 14:55 | Diagnostic Imaging Report ---
Indication: Acute renal failure, abnormal renal function tests Technique: Grayscale and duplex images of the kidneys, retroperitoneum, and bladder were obtained. Comparison: Abdominal sonogram dated 06/14/2020 Findings: Right kidney measures 11 cm in length. Left kidney measures 11 cm in length. Both kidneys demonstrate normal echogenicity. No hydronephrosis. No focal abnormality. Normal inferior vena cava. Bladder is empty, contains a James catheter. Small amount of free intraperitoneal fluid is seen in the right lower quadrant and in Morison's pouch. Hydronephrosis described on the prior sonogram is not evident Impression: Negative for hydronephrosis. Hydronephrosis reported on previous day's abdominal sonogram has resolved, likely as a result of interim bladder decompression Free intraperitoneal fluid, also previously demonstrated Empty bladder with a James catheter.
--- NOTE | 2020-06-15 15:04 | NUR ---
CASE MANAGEMENT:REVIEW 70 YR OLD MALE BIBA FROM A [facility]SISTED LIVING CC: ABDOMINAL PAIN W/DISTENDED ABDOMEN, NAUSEA AND TACHYCARDIA SI: SMALL BOWEL OBSTRUCTION PNA RENAL FAILURE. HYDRONEPHROSIS 98.3 78 16 142/85 90% ON RA WBC+12.4 NA-129 K-3.1 BUN+70 CR+4.9 IS: IV ROCEPHIN TYLENOL PO IV PROTONIX CT ABD/PELVIS NG TUBE PLACED : TO TELEMETRY PLAN: ABDOMINAL US NPO URINE CX RAPID COVID RENAL US 2DECHO 06/15/20 IS: IVF@75/HR IV KCL Q1HRS X3 BAGS IV PROTONIX Q12 HEPARIN SQ Q12 NPO NG TUBE TO LOW CONTINUOUS SUCTION : TELEMETRY
--- NOTE | 2020-06-15 15:07 | NUR ---
NURSE NOTES: Patient has multiple bloody diarrhea. Stool sample sent to lab for OB stool and C-Diff. Addendum: 06/15/20 at 1509 by Lesly Sandoval RN Dark bloody diarrhea
--- NOTE | 2020-06-15 15:14 | NUR ---
NURSE NOTES: Meds reconcile collected from [facility]; according to [facility] and [facility].
[2020-06-15] MEDS ORDERED: NS 275ml ONE (18:21)
[2020-06-15] MEDS ORDERED: Tubing IV Secondary IV ONE (18:21)
--- NOTE | 2020-06-15 19:21 | NUR ---
HAND-OFF: Report given to NETO Mullen. Pt is stable. Plan of care endorsed.
--- NOTE | 2020-06-15 19:22 | NUR ---
NURSE NOTES: Hand-off report received from Esthela Dao RN. quality assurance monitor final is in place, bed in lowest and locked position, bed alarm on, call light within reach. Patient on 2L NC, is breathing even and unlabored. No changes in LOC noted. NG tube is at 55cm, right nare, low continuous suction, brownish output is noted. NG tube held in place with tape. James 16 Fr, draining clear yellow urine. Left AC IV catheter is patent running prescribed fluids. IV site is clean, dry, intact, no redness or leaking noted. No acute signs of distress or complaints of pain noted.
--- NOTE | 2020-06-15 20:05 | History & Physical ---
History and Physical History & Physicial Dictated for Int Med-Dr Negro no. [id number] Brodie Lutz MD Jun 15, 2020 20:04
--- NOTE | 2020-06-15 22:15 | History and Physical Report ---
DATE OF ADMISSION: 06/14/2020 CHIEF COMPLAINT: The patient is a 70-year-old male, who presents with chief complaint of abdominal pain and swelling for 5 days. HISTORY OF PRESENT ILLNESS: It began 5 days prior to admission. The patient states he has been constipated. The patient states his stomach has increased in size in the last 5 days. The patient has had some dark colored stools. The patient presented to [facility]. A CT scan of the abdomen revealed a markedly distended bladder and markedly enlarged prostate. The patient is admitted with obstructive uropathy and small-bowel ileus. REVIEW OF SYSTEMS: CONSTITUTIONAL: The patient denies weight loss or weight gain. The patient denies fevers or chills. HEENT: The patient denies ear or throat pain. The patient denies headache. CARDIOVASCULAR: The patient denies palpitations or chest pain. CHEST: The patient denies wheeze or shortness of breath. ABDOMINAL: The patient complains of abdominal distention as above. The patient does complain of some black stools as above. The patient denies diarrhea or constipation. GENITOURINARY: The patient denies dysuria or increased frequency of urination. NEUROMUSCULAR: The patient denies seizures or generalized weakness. PAST MEDICAL HISTORY: Significant for: 1. Type 2 diabetes. 2. Hypertension. 3. Hypercholesterolemia. PAST SURGICAL HISTORY: The patient denies. CURRENT MEDICATIONS: 1. Amlodipine 5 mg 1 tablet p.o. daily. 2. Aspirin 81 mg p.o. daily. 3. Benazepril 10 mg p.o. daily. 4. Pepcid 40 mg p.o. daily. 5. Finasteride 5 mg p.o. daily. 6. Gabapentin 100 mg p.o. 3 times daily. 7. Hydralazine 25 mg p.o. q.8h. 8. Lorazepam 0.5 mg p.o. q.4h. p.r.n. 9. Losartan 100 mg p.o. daily. 10. Metformin 500 mg p.o. daily. 11. Singulair 10 mg p.o. daily. 12. Naproxen 250 mg p.o. twice daily. 13. Simvastatin 20 mg p.o. nightly. 14. Tamsulosin 0.4 mg p.o. daily. 15. Trazodone 50 mg p.o. nightly. ALLERGIES: No known drug allergies. SOCIAL HISTORY: The patient is single and is disabled. The patient denies tobacco or alcohol use. PHYSICAL EXAMINATION: VITAL SIGNS: Temperature 98.2, respirations 16, pulse 78, blood pressure 142/85. GENERAL: The patient is a well-developed, well-nourished, male, in no apparent distress. HEENT: Eyes, pupils equal and responsive to light and accommodation. Extraocular movements are intact. NECK: Supple without lymphadenopathy. CHEST: Lungs are clear to auscultation bilaterally without wheezes or rales. CARDIOVASCULAR: Regular rhythm and rate. S1, S2 are normal without murmurs, rubs, or gallops. ABDOMEN: Soft, distended with decreased bowel sounds. No evidence of hepatosplenomegaly. Currently, no rebound or guarding noted. EXTREMITIES: Negative for clubbing, cyanosis, or edema. RECTAL: Not performed. GENITAL: Not performed. NEUROLOGICAL: Cranial nerves II through XII grossly intact without focal deficits. Motor strength is 5/5 throughout. Deep tendon reflexes are 2+, plantar. LABORATORY STUDIES: WBC 12.4, hemoglobin 13.3, hematocrit 39.3, platelets 237,000. Sodium 129, potassium 3.1, chloride 87, CO2 of 28, BUN 70, creatinine 4.9, glucose 190. CT scan of the abdomen and pelvis was reported as massive prostatomegaly was severely distended urinary bladder and bilateral moderate hydroureteronephrosis and small-bowel ileus. ASSESSMENT: This is a 70-year-old male with: 1. Obstructive uropathy. 2. Prostate enlargement. 3. Small-bowel ileus. 4. Bilateral hydronephrosis. 5. Diabetes type 2. 6. Hypertension. 7. Hypercholesterolemia. TREATMENT: 1. Small-bowel ileus. A Gastroenterology consultation has been obtained with Dr. Jimi Elizalde. We will follow recommendations of Gastroenterology. 2. Obstructive uropathy/enlarged prostate. A Nephrology consultation has been obtained with Dr. Seth Goddard. A Urology consultation is pending with Dr. Puckett. The patient currently has a urinary catheter in place. 3. Bilateral hydronephrosis, probably secondary to obstructive uropathy secondary to prostatic enlargement. 4. Diabetes type 2. NovoLog sliding scale has been instituted. 5. Hypertension. Continue Norvasc as above. 6. Hypercholesterolemia. Continue atorvastatin as above. Brodie Lutz M.D. DR: Segundo JOB#: [id number] CC:
[2020-06-16] VITALS (9 sets, daily range): BP systolic 130–170; BP diastolic 72–95
--- NOTE | 2020-06-16 01:30 | NUR ---
NURSE NOTES: Patient is alert and oriented x3, able to make needs met, breathing is even and unlabored, pupils are equal, reactive, brisk 3mm bilaterally. Patient has no complaints of pain, no s/s of pain. Abdomen is soft, non-tender upon palpation and hypoactive. James is patent and draining clear yellow urine, pulses are +2 radial and +2 dorsalis pedal pulses. No changes in LOC noted. Bilateral hand wire brush maker are 3 / 5, pedal pushes 4 /5.
--- NOTE | 2020-06-16 02:31 | NUR ---
NURSE NOTES: Notified Dr. Negro regarding complaints of generalized pain 5/10 and constant thirst. Awaiting doctor's orders.
--- NOTE | 2020-06-16 02:40 | NUR ---
NURSE NOTES: Patient in stable condition, unable to reach doctor at this time. Patient vital signs are stable. Addendum: 06/16/20 at 0357 by Sebas Cross RN Provided alternative measures of pain alleviation and distraction as requested: TV on, patient positioning, dim lighting, pillow placement. Patient states that he is comfortable.
[2020-06-16] MEDS: D5NS w/KCl 40mEq 1000ml 1,000 ML IV SCH ×2 (02:43→11:36)
--- NOTE | 2020-06-16 06:00 | NUR ---
NURSE NOTES: Dr. Negro states that his assessment is needed before pain administration can be ordered. No new orders at this time.
[2020-06-16] MEDS: NovoLOG Insulin Flexpen SUBQ SCH ×4 (06:15→21:00)
[2020-06-16 06:39] LABS: EOSINOPHILS % (AUTO) 1.9 % (0.0-3.0); HEMATOCRIT 38.7 % (42.0-52.0); HEMOGLOBIN 12.7 G/DL (14.2-18.0); LYMPHOCYTES % (AUTO) 16.1 % (20.0-45.0); MEAN CORPUSCULAR VOLUME 87 FL (80-99); MONOCYTES % (AUTO) 12.9 % (1.0-10.0); NEUTROPHILS % (AUTO) 68.2 % (45.0-75.0); PLATELET COUNT 228 K/UL (150-450); RED BLOOD COUNT 4.44 M/UL (4.70-6.10); RED CELL DISTRIBUTION WIDTH 12.7 % (11.6-14.8); WHITE BLOOD COUNT 8.7 K/UL (4.8-10.8)
[2020-06-16 07:10] LABS: ALANINE AMINOTRANSFERASE 30 U/L (12-78); ALBUMIN/GLOBULIN RATIO 0.9 (1.0-2.7); ALKALINE PHOSPHATASE 62 U/L (46-116); ANION GAP 8 mmol/L (5-15); ASPARTATE AMINO TRANSFERASE 18 U/L (15-37); BILIRUBIN,TOTAL 0.4 MG/DL (0.2-1.0); BLOOD UREA NITROGEN 7 mg/dL (7-18); CALCIUM 8.5 MG/DL (8.5-10.1); CARBON DIOXIDE 32 MMOL/L (21-32); CHLORIDE 102 MMOL/L (98-107); CHOLESTEROL 140 MG/DL (< 200); CREATINE KINASE 70 U/L (26-308); CREATININE 0.7 MG/DL (0.55-1.30); FERRITIN 194 NG/ML (8-388); GAMMA GLUTAMYL TRANSPEPTIDASE 53 U/L (5-85); HDL CHOLESTEROL 46 MG/DL (40-60); LACTATE DEHYDROGENASE 254 U/L (81-234); SODIUM 142 MMOL/L (136-145); TRIGLYCERIDES 74 MG/DL (30-150)
[2020-06-16 07:55] LABS: % IRON SATURATION 19 % (15-50); IRON 36 ug/dL (50-175); TOTAL IRON BINDING CAPACITY 188 ug/dL (250-450)
--- NOTE | 2020-06-16 08:00 | NUR ---
HAND-OFF: Report given to NETO Alcala. Plan of care endorsed. Endorsed need for pain medication. Patient in stable condition.
--- NOTE | 2020-06-16 08:01 | NUR ---
NURSE NOTES: Received report from Patrick DUQUE. Pt in bed awake and alert, asking for some ice. NG tube and hardin catheter in place. Bed locked and in lowest position. No complaints of pain or signs of distress noted. Call light within reach. Whiteboard updated.
[2020-06-16] MEDS: Pantoprazole Inj IVP SCH ×2 (08:50→21:11)
[2020-06-16] MEDS: Heparin 5000 units/ml inj SUBQ SCH ×2 (08:51→21:21)
[2020-06-16] MEDS: Potassium Phosphate 15mm/250ml 250 ML IVPB SCH ×3 (09:54→16:08)
--- NOTE | 2020-06-16 10:28 | Nephrology Progress Note ---
Assessment/Plan Problem List: (1) Urinary retention (2) CHUNG (acute kidney injury) (3) Enlarged prostate (4) Hyponatremia (5) History of diabetes mellitus (6) History of hypertension Assessment Acute renal failure, most likely secondary to urinary outlet obstruction. Unclear if patient has underlying chronic kidney disease. Severe prostatic hypertrophy and BPH Abdominal pain, distention, possible SBO Electrolyte imbalance, hyponatremia Evidence of melena, possible upper GI bleed Possible pneumonia Cholelithiasis Plan Hydration, adjust IV fluid as needed Correct electrolytes Monitor renal parameters and electrolytes Monitor H&H Kidney ultrasound, noted 2D echocardiogram, ejection fraction 60 to 65% Per consultants Per orders Kidney ultrasound impression: Negative for hydronephrosis. Hydronephrosis reported on previous day's abdominal sonogram has resolved, likely as a result of interim bladder decompression Free intraperitoneal fluid, also previously demonstrated Empty bladder with a James catheter. Objective Objective Last 24 Hour Vital Signs Date Time Temp Pulse Resp B/P (MAP) Pulse Ox O2 Delivery O2 Flow Rate FiO2 06/16/20 08:00 97.8 92 19 165/88 (113) 97 06/16/20 05:24 162/79 06/16/20 04:00 72 06/16/20 04:00 98.6 72 24 162/79 (106) 99 06/16/20 02:00 160/77 (104) 06/16/20 01:25 167/72 (103) 06/16/20 01:11 168/77 06/16/20 00:00 97.7 84 20 168/74 (105) 94 06/16/20 00:00 84 06/15/20 21:00 Nasal Cannula 2.0 06/15/20 20:00 85 06/15/20 20:00 97.7 81 20 155/72 (99) 94 06/15/20 16:00 97.7 68 20 110/53 (72) 94 06/15/20 16:00 85 06/15/20 12:00 87 06/15/20 12:00 97.5 84 18 135/59 (84) 97 06/15/20 11:28 162/77 Intake and Output 06/15/20 06/16/20 19:00 07:00 Intake Total 335.5 ml Output Total 1600 ml Balance -1264.5 ml Intake IV Total 335.5 ml Output Urine Total 1600 ml # Bowel Movements 5 Laboratory Tests 06/15/20 11:39: POC Whole Blood Glucose 122H 06/15/20 15:00: Stool Occult Blood [Pending] 06/15/20 15:54: POC Whole Blood Glucose 143H 06/16/20 06:01: White Blood Count 8.7, Red Blood Count 4.44L, Hemoglobin 12.7L, Hematocrit 38.7L , Mean Corpuscular Volume 87, Mean Corpuscular Hemoglobin 28.6, Mean Corpuscular Hemoglobin Concent 32.9, Red Cell Distribution Width 12.7, Platelet Count 228, Mean Platelet Volume 7.3, Neutrophils (%) (Auto) 68.2, Lymphocytes (% ) (Auto) 16.1L, Monocytes (%) (Auto) 12.9H, Eosinophils (%) (Auto) 1.9, Basophils (%) (Auto) 1.0, Erythrocyte Sedimentation Rate 37H, Sodium Level 142, Potassium Level 3.0L, Chloride Level 102, Carbon Dioxide Level 32, Anion Gap 8, Blood Urea Nitrogen 7, Creatinine 0.7#, Estimat Glomerular Filtration Rate > 60 , Glucose Level 151H, Uric Acid 5.7, Calcium Level 8.5, Phosphorus Level 2.0L, Magnesium Level 1.9, Iron Level 36L, Total Iron Binding Capacity 188L, Percent Iron Saturation 19, Unsaturated Iron Binding 152, Ferritin 194, Total Bilirubin 0.4, Gamma Glutamyl Transpeptidase 53, Aspartate Amino Transf (AST/SGOT) 18, Alanine Aminotransferase (ALT/SGPT) 30, Alkaline Phosphatase 62, Lactate Dehydrogenase 254H, Total Creatine Kinase 70, Troponin I 0.019, C-Reactive Protein, Quantitative 8.1H, Pro-B-Type Natriuretic Peptide 253H, Total Protein 6.3L, Albumin 3.0L, Globulin 3.3, Albumin/Globulin Ratio 0.9L, Triglycerides Level 74, Cholesterol Level 140, LDL Cholesterol 74, HDL Cholesterol 46, Cholesterol/HDL Ratio 3.0L, Vitamin B12 Level 985, Folate 24.7 Height (Feet): 5 Height (Inches): 6.00 Weight (Pounds): 168 Seth Goddard MD Jun 16, 2020 10:27
--- NOTE | 2020-06-16 10:55 | Pulmonology Progress Note ---
Subjective ROS Limited/Unobtainable: No Interval Events: NG tube still in Allergies: Coded Allergies: No Known Allergies (Unverified , 06/14/20) Objective Last 24 Hour Vital Signs Date Time Temp Pulse Resp B/P (MAP) Pulse Ox O2 Delivery O2 Flow Rate FiO2 06/16/20 08:00 97.8 92 19 165/88 (113) 97 06/16/20 05:24 162/79 06/16/20 04:00 72 06/16/20 04:00 98.6 72 24 162/79 (106) 99 06/16/20 02:00 160/77 (104) 06/16/20 01:25 167/72 (103) 06/16/20 01:11 168/77 06/16/20 00:00 97.7 84 20 168/74 (105) 94 06/16/20 00:00 84 06/15/20 21:00 Nasal Cannula 2.0 06/15/20 20:00 85 06/15/20 20:00 97.7 81 20 155/72 (99) 94 06/15/20 16:00 97.7 68 20 110/53 (72) 94 06/15/20 16:00 85 06/15/20 12:00 87 06/15/20 12:00 97.5 84 18 135/59 (84) 97 06/15/20 11:28 162/77 Intake and Output 06/15/20 06/16/20 19:00 07:00 Intake Total 335.5 ml Output Total 1600 ml Balance -1264.5 ml Intake IV Total 335.5 ml Output Urine Total 1600 ml # Bowel Movements 5 General Appearance: WD/WN HEENT: normocephalic Respiratory: chest wall non-tender, lungs clear Cardiovascular: normal peripheral pulses, normal rate, regular rhythm Abdomen: normal bowel sounds, soft, non tender Genitourinary: normal external genitalia Extremities: no cyanosis Skin: no rash 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 Lymphatic: no neck adenopathy Microbiology Date/Time Source Procedure Growth Status 06/14/20 21:55 Nasopharynx SARS-CoV-2 RdRp Gene Assay - Final Complete 06/14/20 20:40 Urine,Clean Catch Urine Culture - Preliminary NO GROWTH AFTER 24 HOURS Resulted 06/14/20 19:00 Rectum Received Laboratory Tests 06/15/20 11:39: POC Whole Blood Glucose 122H 06/15/20 15:00: Stool Occult Blood [Pending] 06/15/20 15:54: POC Whole Blood Glucose 143H 06/16/20 06:01: White Blood Count 8.7, Red Blood Count 4.44L, Hemoglobin 12.7L, Hematocrit 38.7L , Mean Corpuscular Volume 87, Mean Corpuscular Hemoglobin 28.6, Mean Corpuscular Hemoglobin Concent 32.9, Red Cell Distribution Width 12.7, Platelet Count 228, Mean Platelet Volume 7.3, Neutrophils (%) (Auto) 68.2, Lymphocytes (% ) (Auto) 16.1L, Monocytes (%) (Auto) 12.9H, Eosinophils (%) (Auto) 1.9, Basophils (%) (Auto) 1.0, Erythrocyte Sedimentation Rate 37H, Sodium Level 142, Potassium Level 3.0L, Chloride Level 102, Carbon Dioxide Level 32, Anion Gap 8, Blood Urea Nitrogen 7, Creatinine 0.7#, Estimat Glomerular Filtration Rate > 60 , Glucose Level 151H, Uric Acid 5.7, Calcium Level 8.5, Phosphorus Level 2.0L, Magnesium Level 1.9, Iron Level 36L, Total Iron Binding Capacity 188L, Percent Iron Saturation 19, Unsaturated Iron Binding 152, Ferritin 194, Total Bilirubin 0.4, Gamma Glutamyl Transpeptidase 53, Aspartate Amino Transf (AST/SGOT) 18, Alanine Aminotransferase (ALT/SGPT) 30, Alkaline Phosphatase 62, Lactate Dehydrogenase 254H, Total Creatine Kinase 70, Troponin I 0.019, C-Reactive Protein, Quantitative 8.1H, Pro-B-Type Natriuretic Peptide 253H, Total Protein 6.3L, Albumin 3.0L, Globulin 3.3, Albumin/Globulin Ratio 0.9L, Triglycerides Level 74, Cholesterol Level 140, LDL Cholesterol 74, HDL Cholesterol 46, Cholesterol/HDL Ratio 3.0L, Vitamin B12 Level 985, Folate 24.7 Current Medications Medications (Trade) Dose Ordered Sig/Chaim Route PRN Reason Start Time Stop Time Status Last Admin Dose Admin Acetaminophen (Tylenol) 650 mg Q4H PRN ORAL fever (T>100.5F) 06/14/20 20:30 07/14/20 20:29 Dextrose (Dextrose 50%) 25 ml Q30M PRN IV Hypoglycemia 06/14/20 20:30 09/12/20 20:29 Dextrose (Dextrose 50%) 50 ml Q30M PRN IV Hypoglycemia 06/14/20 20:30 09/12/20 20:29 Dextrose/ Electrolytes 1,000 ml @ 50 mls/hr Q20H IV 06/16/20 09:20 07/16/20 09:19 Diphenhydramine HCl (Benadryl) 25 mg Q6H PRN ORAL Itching/Pruritis 06/14/20 20:30 07/14/20 20:29 Heparin Sodium (Porcine) (Heparin 5000 units/ml) 5,000 units EVERY 12 HOURS SUBQ 06/14/20 21:00 07/29/20 20:59 06/16/20 08:51 Hydralazine HCl (Apresoline) 10 mg Q4H PRN IV BP over 160 systolic 06/15/20 12:00 09/13/20 11:59 06/16/20 05:24 Insulin Aspart (NovoLOG) BEFORE MEALS AND HS SUBQ 06/14/20 22:00 09/12/20 21:59 Nitroglycerin (Ntg) 0.4 mg Q5M X 3 DOSES PRN SL Prn Chest Pain 06/14/20 20:30 07/14/20 20:29 Ondansetron HCl (Zofran) 4 mg Q6H PRN IVP Nausea & Vomiting 06/14/20 20:30 07/14/20 20:29 Pantoprazole (Protonix) 40 mg EVERY 12 HOURS IVP 06/15/20 12:00 07/15/20 11:59 06/16/20 08:50 Polyethylene Glycol (Miralax) 17 gm HSPRN PRN ORAL Constipation 06/14/20 20:30 07/14/20 20:29 Potassium Phosphate 250 ml @ 62.5 mls/hr Q4H IVPB 06/16/20 10:00 06/16/20 17:59 06/16/20 09:54 Temazepam (Restoril) 15 mg HSPRN PRN ORAL Insomnia 06/14/20 20:30 06/21/20 20:29 Assessment/Plan Problems: (1) Intractable abdominal pain (2) SBO (small bowel obstruction) (3) Cholecystitis (4) Urinary retention (5) Hydronephrosis (6) History of hypertension (7) History of diabetes mellitus Assessment/Plan continue NPOI IV fluids with K supplement sliding scale check electrolytes renal evaluation GI and surgery to see Charlene Penaloza MD Jun 16, 2020 10:55
[2020-06-16] MEDS: Piperacillin/Tazobactam 3.375 GM in NS 110 ML IVPB SCH ×2 (14:33→21:26)
[2020-06-16] MEDS ORDERED: Bacitracin 50000 Units Vial ONE (15:04)
[2020-06-16] MEDS ORDERED: NeoSporin Gu Irrig 1ml Amp IRRIG ONE (15:04)
--- NOTE | 2020-06-16 15:31 | Consultation ---
History of Present Illness General Date patient seen: Jun 16, 2020 Reason for Hospitalization: Abdominal Pain Present Illness HPI This is a 70-year-old male with multiple medical committees who is a board-and- care resident that presented for abdominal pain and distention. CT identified ileitis with small and large bowel distention gastric distention cholelithiasis. Admitted further care management. Surgery called to evaluate assist with care. Patient seen, patient evaluate, chart reviewed. Patient states that since admission he feels better. NG tube was placed initially without significant output. Labs noted. Allergies: Coded Allergies: No Known Allergies (Unverified , 06/14/20) COVID-19 Screening Contact w/high risk pt: No Recent Travel to affected area: No Experienced COVID-19 symptoms?: No Medication History Scheduled Amlodipine Besylate* (Amlodipine Besylate*), 5 MG ORAL DAILY, (Reported) Aspirin (Aspirin), 81 MG PO DAILY, (Reported) Benazepril Hcl* (Benazepril Hcl*), 10 MG ORAL DAILY, (Reported) Docusate Sodium* (Docusate Sodium*), 100 MG ORAL TWICE A DAY, (Reported) Docusate Sodium* (Docusate Sodium*), 100 MG ORAL TWICE A DAY, (Reported) Finasteride (Finasteride), 5 MG ORAL DAILY, (Reported) Gabapentin* (Gabapentin*), 100 MG ORAL THREE TIMES A DAY, (Reported) Hydralazine Hcl* (Hydralazine Hcl*), 5 MG ORAL EVERY 8 HOURS, (Reported) Lorazepam* (Ativan*), 0.5 MG ORAL Q4HR, (Reported) Losartan Potassium (Losartan Potassium), 10 MG ORAL DAILY, (Reported) Metformin HCl (Metformin HCl), 500 MG PO DAILY, (Reported) Montelukast Sodium* (Montelukast Sodium*), 10 MG ORAL DAILY, (Reported) Multivitamins* (Multivitamins*), 1 TAB ORAL DAILY, (Reported) Simvastatin (Zocor), 20 MG ORAL BEDTIME, (Reported) Tamsulosin HCl (Flomax), 0.4 MG ORAL DAILY, (Reported) Scheduled PRN Diphenhydramine Hcl* (Benadryl Allergy*), 12.5 MG ORAL Q6H PRN for Itching, ( Reported) Morphine HCl (Morphine Sulfate ER), 0.25 MG ORAL Q4HR PRN for For Pain, ( Reported) Ondansetron (Zofran), 4 MG ORAL Q8HR PRN for Nausea & Vomiting, (Reported) Miscellaneous Medications Atropine Sulfate (Atropine Sulfate), 5 ML OP, (Reported) Famotidine (Famotidine), 40 MG PO, (Reported) Naproxen (Naproxen), 250 MG PO, (Reported) Trazodone Hcl (Desyrel), 50 MG PO, (Reported) Patient History History Provided By: Patient, Medical Record, PMD Healthcare decision maker Resuscitation status Advanced Directive on File Past Medical/Surgical History Past Medical/Surgical History: (1) Intractable abdominal pain (2) Urinary retention (3) CHUNG (acute kidney injury) (4) Cholecystitis (5) History of diabetes mellitus (6) History of hypertension (7) Hydronephrosis (8) Prostatitis (9) Enlarged prostate (10) Melena (11) Hyponatremia (12) Renal failure (13) SBO (small bowel obstruction) (14) Abdominal pain Review of Systems Review of Symptoms General ROS: no weight loss or fever Psychological ROS: no depression or mood changes, no memory loss Ophthalmic ROS: no visual changes or eye irritation ENT ROS: no nasal congestion, hearing loss, dizziness Allergy and Immunology ROS: no allergic symptoms or urticaria Hematological and Lymphatic ROS: no swollen glands, unusual bleeding or bruising Endocrine ROS: no polyuria, polydipsia, weight changes, temperature intolerance Respiratory ROS: no cough, shortness of breath, or wheezing Cardiovascular ROS: no chest pain or dyspnea on exertion Gastrointestinal ROS: denies abdominal pain, bright red blood in stool. Musculoskeletal ROS: no myalgias or arthralgias Neurological ROS: no TIA or stroke symptoms Dermatological ROS: no new or changing skin lesions, rashes or pruritis Physical Exam Physical Exam General appearance: alert, cooperative, no distress, appears stated age Head: Normocephalic, without obvious abnormality, atraumatic Eyes: conjunctivae/corneas clear. PERRL, EOM's intact. Fundi benign Throat: Lips, mucosa, and tongue normal. Teeth and gums normal Neck: supple, symmetrical, trachea midline, no adenopathy, thyroid: not enlarged, symmetric, no tenderness/mass/nodules, no carotid bruit and no JVD Lungs: clear to auscultation bilaterally Heart: regular rate and rhythm, S1, S2 normal, no murmur, click, rub or gallop Abdomen: soft, non-tender. Bowel sounds normal. No masses, no organomegaly Extremities: extremities normal, atraumatic, no cyanosis or edema Pulses: 2+ and symmetric Skin: Skin color, texture, turgor normal. No rashes or lesions Neurologic: Grossly normal Last 24 Hour Vital Signs Date Time Temp Pulse Resp B/P (MAP) Pulse Ox O2 Delivery O2 Flow Rate FiO2 06/16/20 15:08 170/92 06/16/20 12:00 97.7 79 19 167/84 (111) 97 06/16/20 12:00 84 06/16/20 09:00 Nasal Cannula 2.0 06/16/20 08:00 97.8 92 19 165/88 (113) 97 06/16/20 08:00 88 06/16/20 05:24 162/79 06/16/20 04:00 72 06/16/20 04:00 98.6 72 24 162/79 (106) 99 06/16/20 02:00 160/77 (104) 06/16/20 01:25 167/72 (103) 06/16/20 01:11 168/77 06/16/20 00:00 97.7 84 20 168/74 (105) 94 06/16/20 00:00 84 06/15/20 21:00 Nasal Cannula 2.0 06/15/20 20:00 85 06/15/20 20:00 97.7 81 20 155/72 (99) 94 06/15/20 16:00 97.7 68 20 110/53 (72) 94 06/15/20 16:00 85 Intake and Output 06/15/20 06/16/20 19:00 07:00 Intake Total 335.5 ml Output Total 1600 ml Balance -1264.5 ml IV Total 335.5 ml Output Urine Total 1600 ml # Bowel Movements 5 Laboratory Tests Test 06/15/20 15:54 06/16/20 06:01 06/16/20 11:39 POC Whole Blood Glucose 143 MG/DL (74-106) H 184 MG/DL (74-106) H White Blood Count 8.7 K/UL (4.8-10.8) Red Blood Count 4.44 M/UL (4.70-6.10) L Hemoglobin 12.7 G/DL (14.2-18.0) L Hematocrit 38.7 % (42.0-52.0) L Mean Corpuscular Volume 87 FL (80-99) Mean Corpuscular Hemoglobin 28.6 PG (27.0-31.0) Mean Corpuscular Hemoglobin Concent 32.9 G/DL (32.0-36.0) Red Cell Distribution Width 12.7 % (11.6-14.8) Platelet Count 228 K/UL (150-450) Mean Platelet Volume 7.3 FL (6.5-10.1) Neutrophils (%) (Auto) 68.2 % (45.0-75.0) Lymphocytes (%) (Auto) 16.1 % (20.0-45.0) L Monocytes (%) (Auto) 12.9 % (1.0-10.0) H Eosinophils (%) (Auto) 1.9 % (0.0-3.0) Basophils (%) (Auto) 1.0 % (0.0-2.0) Erythrocyte Sedimentation Rate 37 MM/HR (0-20) H Sodium Level 142 MMOL/L (136-145) Potassium Level 3.0 MMOL/L (3.5-5.1) L Chloride Level 102 MMOL/L (98-107) Carbon Dioxide Level 32 MMOL/L (21-32) Anion Gap 8 mmol/L (5-15) Blood Urea Nitrogen 7 mg/dL (7-18) Creatinine 0.7 MG/DL (0.55-1.30) # Estimat Glomerular Filtration Rate > 60 mL/min (>60) Glucose Level 151 MG/DL (74-106) H Uric Acid 5.7 MG/DL (2.6-7.2) Calcium Level 8.5 MG/DL (8.5-10.1) Phosphorus Level 2.0 MG/DL (2.5-4.9) L Magnesium Level 1.9 MG/DL (1.8-2.4) Iron Level 36 ug/dL (50-175) L Total Iron Binding Capacity 188 ug/dL (250-450) L Percent Iron Saturation 19 % (15-50) Unsaturated Iron Binding 152 ug/dL (112-346) Ferritin 194 NG/ML (8-388) Total Bilirubin 0.4 MG/DL (0.2-1.0) Gamma Glutamyl Transpeptidase 53 U/L (5-85) Aspartate Amino Transf (AST/SGOT) 18 U/L (15-37) Alanine Aminotransferase (ALT/SGPT) 30 U/L (12-78) Alkaline Phosphatase 62 U/L (46-116) Lactate Dehydrogenase 254 U/L (81-234) H Total Creatine Kinase 70 U/L (26-308) Troponin I 0.019 ng/mL (0.000-0.056) C-Reactive Protein, Quantitative 8.1 mg/dL (0.00-0.90) H Pro-B-Type Natriuretic Peptide 253 pg/mL (0-125) H Total Protein 6.3 G/DL (6.4-8.2) L Albumin 3.0 G/DL (3.4-5.0) L Globulin 3.3 g/dL Albumin/Globulin Ratio 0.9 (1.0-2.7) L Triglycerides Level 74 MG/DL (30-150) Cholesterol Level 140 MG/DL (< 200) LDL Cholesterol 74 mg/dL (<100) HDL Cholesterol 46 MG/DL (40-60) Cholesterol/HDL Ratio 3.0 (3.3-4.4) L Vitamin B12 Level 985 PG/ML (193-986) Folate 24.7 NG/ML (8.6-58.9) Height (Feet): 5 Height (Inches): 6.00 Weight (Pounds): 168 Medications Current Medications Medications (Trade) Dose Ordered Sig/Chaim Route PRN Reason Start Time Stop Time Status Last Admin Dose Admin Acetaminophen (Tylenol) 650 mg Q4H PRN ORAL fever (T>100.5F) 06/14/20 20:30 07/14/20 20:29 Acetaminophen (Tylenol) 650 mg Q4H PRN ORAL Mild Pain (1-3) or Headache 06/16/20 13:45 07/16/20 13:44 06/16/20 13:46 Dextrose (Dextrose 50%) 25 ml Q30M PRN IV Hypoglycemia 06/14/20 20:30 09/12/20 20:29 Dextrose (Dextrose 50%) 50 ml Q30M PRN IV Hypoglycemia 06/14/20 20:30 09/12/20 20:29 Dextrose/ Electrolytes 1,000 ml @ 50 mls/hr Q20H IV 06/16/20 09:20 07/16/20 09:19 06/16/20 11:36 Diphenhydramine HCl (Benadryl) 25 mg Q6H PRN ORAL Itching/Pruritis 06/14/20 20:30 07/14/20 20:29 Heparin Sodium (Porcine) (Heparin 5000 units/ml) 5,000 units EVERY 12 HOURS SUBQ 06/14/20 21:00 07/29/20 20:59 06/16/20 08:51 Hydralazine HCl (Apresoline) 10 mg Q4H PRN IV BP over 160 systolic 06/15/20 12:00 09/13/20 11:59 06/16/20 15:08 Insulin Aspart (NovoLOG) BEFORE MEALS AND HS SUBQ 06/14/20 22:00 09/12/20 21:59 Nitroglycerin (Ntg) 0.4 mg Q5M X 3 DOSES PRN SL Prn Chest Pain 06/14/20 20:30 07/14/20 20:29 Ondansetron HCl (Zofran) 4 mg Q6H PRN IVP Nausea & Vomiting 06/14/20 20:30 07/14/20 20:29 Pantoprazole (Protonix) 40 mg EVERY 12 HOURS IVP 06/15/20 12:00 07/15/20 11:59 06/16/20 08:50 Piperacillin Sod/ Tazobactam Sod 3.375 gm/Sodium Chloride 110 ml @ 27.5 mls/hr EVERY 8 HOURS IVPB 06/16/20 14:00 06/21/20 13:59 06/16/20 14:33 Polyethylene Glycol (Miralax) 17 gm HSPRN PRN ORAL Constipation 06/14/20 20:30 07/14/20 20:29 Potassium Phosphate 250 ml @ 62.5 mls/hr Q4H IVPB 06/16/20 10:00 06/16/20 17:59 06/16/20 09:54 Temazepam (Restoril) 15 mg HSPRN PRN ORAL Insomnia 06/14/20 20:30 06/21/20 20:29 Assessment/Plan Problem List: (1) Intractable abdominal pain Assessment & Plan: 70-year-old male with abdominal pain distention. CT noted as below. Currently no nausea vomiting fever chills. States he feels better. NG tube was placed minimal output since. Labs noted improved. No acute surgical intervention planned at this time. Likely ileus which is now resolving. NG tube has been discontinued patient events are with oral diet. Will monitor with serial abdominal examinations. AM labs AM KUB thank you will follow with recs ABDOMEN: Liver: Unremarkable. Gallbladder and bile ducts: Cholelithiasis without findings to suggest acute cholecystitis. No ductal dilation. Pancreas: Unremarkable. No ductal dilation. Spleen: Unremarkable. No splenomegaly. Adrenals: Unremarkable. No mass. Kidneys and ureters: Massive prostatomegaly with severely distended urinary bladder and bilateral moderate hydroureteronephrosis could represent obstructive uropathy. Stomach and bowel: Distended fluid-filled large and small bowel loops suggests ileus, no findings to suggest suzi obstruction. Ascending colon diameter 8 cm. No mucosal thickening. PELVIS: Appendix: No findings to suggest acute appendicitis. Bladder: Unremarkable. No stones. Reproductive: Prostate 7 cm transverse. ABDOMEN and PELVIS: Intraperitoneal space: Unremarkable. No free air. No significant fluid collection. Bones/joints: No acute fracture. No dislocation. Soft tissues: Unremarkable. Vasculature: Unremarkable. No abdominal aortic aneurysm. Lymph nodes: Unremarkable. No enlarged lymph nodes. IMPRESSION: 1. Massive prostatomegaly with severely distended urinary bladder and bilateral moderate hydroureteronephrosis could represent obstructive uropathy. 2. Recommend James catheterization. 3. Distended fluid-filled large and small bowel loops suggests ileus, no findings to suggest suzi obstruction. 4. Respiratory motion artifact limits evaluation of the lung bases, patchy ill-defined groundglass or mosaic attenuation of the lungs and dependent atelectasis present. 5. Cholelithiasis without findings to suggest acute cholecystitis. ICD Codes: R10.9 - Unspecified abdominal pain SNOMED: 57657692 (2) Urinary retention ICD Codes: R33.9 - Retention of urine, unspecified SNOMED: 932059212 (3) CHUNG (acute kidney injury) ICD Codes: N17.9 - Acute kidney failure, unspecified SNOMED: 0558549, 48805370 (4) Cholecystitis ICD Codes: K81.9 - Cholecystitis, unspecified SNOMED: 79651842 (5) History of diabetes mellitus ICD Codes: Z86.39 - Personal history of other endocrine, nutritional and metabolic disease SNOMED: 858241130 (6) History of hypertension ICD Codes: Z86.79 - Personal history of other diseases of the circulatory system SNOMED: 049704019 (7) Hydronephrosis ICD Codes: N13.30 - Unspecified hydronephrosis SNOMED: 63568629 (8) Prostatitis ICD Codes: N41.9 - Inflammatory disease of prostate, unspecified SNOMED: 3425764 (9) Enlarged prostate ICD Codes: N40.0 - Benign prostatic hyperplasia without lower urinary tract symptoms SNOMED: 787695800 (10) Melena ICD Codes: K92.1 - Melena SNOMED: 8085712 (11) Hyponatremia ICD Codes: E87.1 - Hypo-osmolality and hyponatremia SNOMED: 94910658 (12) Renal failure ICD Codes: N19 - Unspecified kidney failure SNOMED: 97302714 (13) SBO (small bowel obstruction) ICD Codes: K56.609 - Unspecified intestinal obstruction, unspecified as to partial versus complete obstruction SNOMED: 069160459 (14) Abdominal pain ICD Codes: R10.9 - Unspecified abdominal pain SNOMED: 81602653 Low James Jun 16, 2020 15:31
--- NOTE | 2020-06-16 15:45 | Consultation ---
DATE OF CONSULTATION: 06/16/2020 GASTROENTEROLOGY CONSULTATION CONSULTING PHYSICIAN: Jimi Elizalde MD. REFERRING PHYSICIAN: Serge Negro MD. CHIEF COMPLAINT: Abdominal pain. HISTORY OF PRESENT ILLNESS: This is a 70-year-old male admitted to the hospital with complaint of abdominal pain and increased abdominal girth. In the ER, the patient had a CT of the abdomen and pelvis, which showed evidence of enlarged prostate and also possible diffuse GI ileus. Since admission, the patient had a G-tube placed, which has helped his symptoms. This morning, talking to the nurses at the bedside, the patient had a gas from below. He passed gas and his surgeon on-call removed the NG tube and started the patient on clear liquid diet. At this time, the patient denies any nausea, vomiting, dysphagia, or odynophagia. No melena. No hematochezia. PAST MEDICAL HISTORY: 1. Diabetes type 2. 2. Hypertension. 3. Hypercholesterolemia. 4. BPH. MEDICATIONS: Please see medication reconciliation list. ALLERGIES: No known drug allergies. PAST SURGICAL HISTORY: The patient denies any prior surgeries. SOCIAL HISTORY: The patient denies any tobacco, alcohol, or drug abuse. REVIEW OF SYSTEMS: Limited. PHYSICAL EXAMINATION: VITAL SIGNS: Temperature 97.7, pulse 79, respirations 19, blood pressure 167/84. HEENT: Normocephalic and atraumatic. Sclerae anicteric. NECK: Supple. No evidence of obvious lymphadenopathy. CARDIOVASCULAR: Regular rate and rhythm. Plus S1-S2. LUNGS: Decreased breath sounds bilaterally based on the supine exam. ABDOMEN: Soft, nontender. No rebound. No guarding. No peritoneal sign. EXTREMITIES: No cyanosis, no clubbing, and no edema. LABORATORY DATA: White count is 8.7, hemoglobin 12, hematocrit 38, and platelet count 228,000. ASSESSMENT AND PLAN: This is a 70-year-old male with diffuse ileus. At this time, the etiology is unknown. There is no evidence of any bowel obstruction. The patient is passing gas. Today, the patient's NG tube has been removed and he is on clear liquid diet, which we will monitor and advance as tolerated. Recommend Urology evaluation for enlarged prostate. I want to thank Dr. Negro for this kind referral. Jimi Luci Elizalde DR: VICKI JOB#: [id number] CC:
--- NOTE | 2020-06-16 16:15 | Consultation ---
History of Present Illness General Date patient seen: Jun 16, 2020 Chief Complaint: Abdominal Pain Present Illness HPI 70 y/o M with hx of DM2, HTN, HLD, BPH, [id number] resident presented to ED on 06/14 with 5 days of abdominal distention and pain. ALso dark stools. Upon admission was noted to have Creatinine up to 4.9. Denied f/c, cough, SOB Allergies: Coded Allergies: No Known Allergies (Unverified , 06/14/20) Medication History Scheduled Amlodipine Besylate* (Amlodipine Besylate*), 5 MG ORAL DAILY, (Reported) Aspirin (Aspirin), 81 MG PO DAILY, (Reported) Benazepril Hcl* (Benazepril Hcl*), 10 MG ORAL DAILY, (Reported) Docusate Sodium* (Docusate Sodium*), 100 MG ORAL TWICE A DAY, (Reported) Docusate Sodium* (Docusate Sodium*), 100 MG ORAL TWICE A DAY, (Reported) Finasteride (Finasteride), 5 MG ORAL DAILY, (Reported) Gabapentin* (Gabapentin*), 100 MG ORAL THREE TIMES A DAY, (Reported) Hydralazine Hcl* (Hydralazine Hcl*), 5 MG ORAL EVERY 8 HOURS, (Reported) Lorazepam* (Ativan*), 0.5 MG ORAL Q4HR, (Reported) Losartan Potassium (Losartan Potassium), 10 MG ORAL DAILY, (Reported) Metformin HCl (Metformin HCl), 500 MG PO DAILY, (Reported) Montelukast Sodium* (Montelukast Sodium*), 10 MG ORAL DAILY, (Reported) Multivitamins* (Multivitamins*), 1 TAB ORAL DAILY, (Reported) Simvastatin (Zocor), 20 MG ORAL BEDTIME, (Reported) Tamsulosin HCl (Flomax), 0.4 MG ORAL DAILY, (Reported) Scheduled PRN Diphenhydramine Hcl* (Benadryl Allergy*), 12.5 MG ORAL Q6H PRN for Itching, ( Reported) Morphine HCl (Morphine Sulfate ER), 0.25 MG ORAL Q4HR PRN for For Pain, ( Reported) Ondansetron (Zofran), 4 MG ORAL Q8HR PRN for Nausea & Vomiting, (Reported) Miscellaneous Medications Atropine Sulfate (Atropine Sulfate), 5 ML OP, (Reported) Famotidine (Famotidine), 40 MG PO, (Reported) Naproxen (Naproxen), 250 MG PO, (Reported) Trazodone Hcl (Desyrel), 50 MG PO, (Reported) Patient History Healthcare decision maker Resuscitation status Advanced Directive on File Patient History Narrative Pmhx: as above Shx: The patient is single and is disabled. The patient denies tobacco or alcohol use. Fhx: non contributory Review of Systems All Other Systems: negative except mentioned in HPI Physical Exam Physical Exam Narrative General Appearance: WD/WN, no apparent distress Lines, tubes and drains: peripheral HEENT: normocephalic, atraumatic Neck: non-tender, normal alignment, supple Respiratory/Chest: chest wall non-tender, lungs clear Cardiovascular/Chest: normal peripheral pulses Abdomen: normal bowel sounds Extremities: normal range of motion Skin Exam: normal pigmentation Last 24 Hour Vital Signs Date Time Temp Pulse Resp B/P (MAP) Pulse Ox O2 Delivery O2 Flow Rate FiO2 06/16/20 15:08 170/92 06/16/20 12:00 97.7 79 19 167/84 (111) 97 06/16/20 12:00 84 06/16/20 09:00 Nasal Cannula 2.0 06/16/20 08:00 97.8 92 19 165/88 (113) 97 06/16/20 08:00 88 06/16/20 05:24 162/79 06/16/20 04:00 72 06/16/20 04:00 98.6 72 24 162/79 (106) 99 06/16/20 02:00 160/77 (104) 06/16/20 01:25 167/72 (103) 06/16/20 01:11 168/77 06/16/20 00:00 97.7 84 20 168/74 (105) 94 06/16/20 00:00 84 06/15/20 21:00 Nasal Cannula 2.0 06/15/20 20:00 85 06/15/20 20:00 97.7 81 20 155/72 (99) 94 06/15/20 16:00 97.7 68 20 110/53 (72) 94 06/15/20 16:00 85 Intake and Output 06/15/20 06/16/20 19:00 07:00 Intake Total 335.5 ml Output Total 1600 ml Balance -1264.5 ml IV Total 335.5 ml Output Urine Total 1600 ml # Bowel Movements 5 Laboratory Tests Test 06/15/20 15:54 06/16/20 06:01 06/16/20 11:39 POC Whole Blood Glucose 143 MG/DL (74-106) H 184 MG/DL (74-106) H White Blood Count 8.7 K/UL (4.8-10.8) Red Blood Count 4.44 M/UL (4.70-6.10) L Hemoglobin 12.7 G/DL (14.2-18.0) L Hematocrit 38.7 % (42.0-52.0) L Mean Corpuscular Volume 87 FL (80-99) Mean Corpuscular Hemoglobin 28.6 PG (27.0-31.0) Mean Corpuscular Hemoglobin Concent 32.9 G/DL (32.0-36.0) Red Cell Distribution Width 12.7 % (11.6-14.8) Platelet Count 228 K/UL (150-450) Mean Platelet Volume 7.3 FL (6.5-10.1) Neutrophils (%) (Auto) 68.2 % (45.0-75.0) Lymphocytes (%) (Auto) 16.1 % (20.0-45.0) L Monocytes (%) (Auto) 12.9 % (1.0-10.0) H Eosinophils (%) (Auto) 1.9 % (0.0-3.0) Basophils (%) (Auto) 1.0 % (0.0-2.0) Erythrocyte Sedimentation Rate 37 MM/HR (0-20) H Sodium Level 142 MMOL/L (136-145) Potassium Level 3.0 MMOL/L (3.5-5.1) L Chloride Level 102 MMOL/L (98-107) Carbon Dioxide Level 32 MMOL/L (21-32) Anion Gap 8 mmol/L (5-15) Blood Urea Nitrogen 7 mg/dL (7-18) Creatinine 0.7 MG/DL (0.55-1.30) # Estimat Glomerular Filtration Rate > 60 mL/min (>60) Glucose Level 151 MG/DL (74-106) H Uric Acid 5.7 MG/DL (2.6-7.2) Calcium Level 8.5 MG/DL (8.5-10.1) Phosphorus Level 2.0 MG/DL (2.5-4.9) L Magnesium Level 1.9 MG/DL (1.8-2.4) Iron Level 36 ug/dL (50-175) L Total Iron Binding Capacity 188 ug/dL (250-450) L Percent Iron Saturation 19 % (15-50) Unsaturated Iron Binding 152 ug/dL (112-346) Ferritin 194 NG/ML (8-388) Total Bilirubin 0.4 MG/DL (0.2-1.0) Gamma Glutamyl Transpeptidase 53 U/L (5-85) Aspartate Amino Transf (AST/SGOT) 18 U/L (15-37) Alanine Aminotransferase (ALT/SGPT) 30 U/L (12-78) Alkaline Phosphatase 62 U/L (46-116) Lactate Dehydrogenase 254 U/L (81-234) H Total Creatine Kinase 70 U/L (26-308) Troponin I 0.019 ng/mL (0.000-0.056) C-Reactive Protein, Quantitative 8.1 mg/dL (0.00-0.90) H Pro-B-Type Natriuretic Peptide 253 pg/mL (0-125) H Total Protein 6.3 G/DL (6.4-8.2) L Albumin 3.0 G/DL (3.4-5.0) L Globulin 3.3 g/dL Albumin/Globulin Ratio 0.9 (1.0-2.7) L Triglycerides Level 74 MG/DL (30-150) Cholesterol Level 140 MG/DL (< 200) LDL Cholesterol 74 mg/dL (<100) HDL Cholesterol 46 MG/DL (40-60) Cholesterol/HDL Ratio 3.0 (3.3-4.4) L Vitamin B12 Level 985 PG/ML (193-986) Folate 24.7 NG/ML (8.6-58.9) Height (Feet): 5 Height (Inches): 6.00 Weight (Pounds): 168 Medications Current Medications Medications (Trade) Dose Ordered Sig/Chaim Route PRN Reason Start Time Stop Time Status Last Admin Dose Admin Acetaminophen (Tylenol) 650 mg Q4H PRN ORAL fever (T>100.5F) 06/14/20 20:30 07/14/20 20:29 Acetaminophen (Tylenol) 650 mg Q4H PRN ORAL Mild Pain (1-3) or Headache 06/16/20 13:45 07/16/20 13:44 06/16/20 13:46 Dextrose (Dextrose 50%) 25 ml Q30M PRN IV Hypoglycemia 06/14/20 20:30 09/12/20 20:29 Dextrose (Dextrose 50%) 50 ml Q30M PRN IV Hypoglycemia 06/14/20 20:30 09/12/20 20:29 Dextrose/ Electrolytes 1,000 ml @ 50 mls/hr Q20H IV 06/16/20 09:20 07/16/20 09:19 06/16/20 11:36 Diphenhydramine HCl (Benadryl) 25 mg Q6H PRN ORAL Itching/Pruritis 06/14/20 20:30 07/14/20 20:29 Heparin Sodium (Porcine) (Heparin 5000 units/ml) 5,000 units EVERY 12 HOURS SUBQ 06/14/20 21:00 07/29/20 20:59 06/16/20 08:51 Hydralazine HCl (Apresoline) 10 mg Q4H PRN IV BP over 160 systolic 06/15/20 12:00 09/13/20 11:59 06/16/20 15:08 Insulin Aspart (NovoLOG) BEFORE MEALS AND HS SUBQ 06/14/20 22:00 09/12/20 21:59 Nitroglycerin (Ntg) 0.4 mg Q5M X 3 DOSES PRN SL Prn Chest Pain 06/14/20 20:30 07/14/20 20:29 Ondansetron HCl (Zofran) 4 mg Q6H PRN IVP Nausea & Vomiting 06/14/20 20:30 07/14/20 20:29 Pantoprazole (Protonix) 40 mg EVERY 12 HOURS IVP 06/15/20 12:00 07/15/20 11:59 06/16/20 08:50 Piperacillin Sod/ Tazobactam Sod 3.375 gm/Sodium Chloride 110 ml @ 27.5 mls/hr EVERY 8 HOURS IVPB 06/16/20 14:00 06/21/20 13:59 06/16/20 14:33 Polyethylene Glycol (Miralax) 17 gm HSPRN PRN ORAL Constipation 7/21/20 20:30 07/14/20 20:29 Potassium Phosphate 250 ml @ 62.5 mls/hr Q4H IVPB 06/16/20 10:00 06/16/20 17:59 06/16/20 09:54 Temazepam (Restoril) 15 mg HSPRN PRN ORAL Insomnia 06/14/20 20:30 06/21/20 20:29 Assessment/Plan Assessment/Plan: Abx: Ceftriaxone x1 06/14 Zosyn 06/16- Assessment: Probable UTI Obstructive uropathy Ileus -06/14 u/a 15-20, nit neg, leuk +1; ucx NTD -CT abd/p: Massive prostatomegaly with severely distended urinary bladder and bilateral moderate hydroureteronephrosis could represent obstructive uropathy. Recommend James catheterization Distended fluid-filled large and small bowel loops suggests ileus, no findings to suggest suzi obstruction. Respiratory motion artifact limits evaluation of the lung bases, patchy ill- defined groundglass or mosaic attenuation of the lungs and dependent atelectasis present. Cholelithiasis without findings to suggest acute cholecystitis. -Abd US: STUDY LIMITED DUE TO BODY HABITUS AND OVERLYING BOWEL GAS. FATTY CHANGE NOTED IN THE VISUALIZED PORTIONS OF THE LIVER. GALLSTONE. MILD BILATERAL HYDRONEPHROSIS. PANCREAS AND AORTA AND CAVA ARE OBSCURED. R/o probable PNA -KUB: Bilateral retrocardiac ill-defined opacities represent dependent atelectasis, without or with some component of consolidation. Low lung volumes with bronchovascular crowding, lung structures would be better visualized on dedicated chest radiographs. -06/14 Rapid COVID NAAT neg Afebrile Leukocytosis, SP -06/15 Cdiff neg CHUNG, improving -REnal US: Negative for hydronephrosis. Hydronephrosis reported on previous day's abdominal sonogram has resolved, likely as a result of interim bladder decompression. Free intraperitoneal fluid, also previously demonstrated. Empty bladder with a James catheter. DM2 HTN HLD BPH [id number] resident Plan: -Continue empiric Zosyn #1 pending cultures -f/u cx -Monitor CBC/CMP, temperatures -CXR am -Neprho, uro f/u -aspiration precautions Thank you for this consultation. Will continue to follow along with you. Discussed with Aleida Willard M.D. Jun 16, 2020 16:15
--- NOTE | 2020-06-16 17:03 | Internal Med Progress Note ---
Subjective Date of Service: Jun 16, 2020 Physician Name Brodie Lutz Attending Physician Serge Negro MD Current Medications Medications (Trade) Dose Ordered Sig/Chaim Route PRN Reason Start Time Stop Time Status Last Admin Dose Admin Acetaminophen (Tylenol) 650 mg Q4H PRN ORAL fever (T>100.5F) 06/14/20 20:30 07/14/20 20:29 Acetaminophen (Tylenol) 650 mg Q4H PRN ORAL Mild Pain (1-3) or Headache 06/16/20 13:45 07/16/20 13:44 06/16/20 13:46 Dextrose (Dextrose 50%) 25 ml Q30M PRN IV Hypoglycemia 06/14/20 20:30 09/12/20 20:29 Dextrose (Dextrose 50%) 50 ml Q30M PRN IV Hypoglycemia 06/14/20 20:30 09/12/20 20:29 Dextrose/ Electrolytes 1,000 ml @ 50 mls/hr Q20H IV 06/16/20 09:20 07/16/20 09:19 06/16/20 11:36 Diphenhydramine HCl (Benadryl) 25 mg Q6H PRN ORAL Itching/Pruritis 06/14/20 20:30 07/14/20 20:29 Heparin Sodium (Porcine) (Heparin 5000 units/ml) 5,000 units EVERY 12 HOURS SUBQ 06/14/20 21:00 07/29/20 20:59 06/16/20 08:51 Hydralazine HCl (Apresoline) 10 mg Q4H PRN IV BP over 160 systolic 06/15/20 12:00 09/13/20 11:59 06/16/20 15:08 Insulin Aspart (NovoLOG) BEFORE MEALS AND HS SUBQ 06/14/20 22:00 09/12/20 21:59 Nitroglycerin (Ntg) 0.4 mg Q5M X 3 DOSES PRN SL Prn Chest Pain 06/14/20 20:30 07/14/20 20:29 Ondansetron HCl (Zofran) 4 mg Q6H PRN IVP Nausea & Vomiting 06/14/20 20:30 07/14/20 20:29 Pantoprazole (Protonix) 40 mg EVERY 12 HOURS IVP 06/15/20 12:00 07/15/20 11:59 06/16/20 08:50 Piperacillin Sod/ Tazobactam Sod 3.375 gm/Sodium Chloride 110 ml @ 27.5 mls/hr EVERY 8 HOURS IVPB 06/16/20 14:00 06/21/20 13:59 06/16/20 14:33 Polyethylene Glycol (Miralax) 17 gm HSPRN PRN ORAL Constipation 06/14/20 20:30 07/14/20 20:29 Potassium Phosphate 250 ml @ 62.5 mls/hr Q4H IVPB 06/16/20 10:00 06/16/20 17:59 06/16/20 16:08 Temazepam (Restoril) 15 mg HSPRN PRN ORAL Insomnia 06/14/20 20:30 06/21/20 20:29 Allergies: Coded Allergies: No Known Allergies (Unverified , 06/14/20) ROS Limited/Unobtainable: No Constitutional: Reports: no symptoms HEENT: Reports: no symptoms Cardiovascular: Reports: no symptoms Respiratory: Reports: no symptoms Gastrointestinal/Abdominal: Reports: abdomen distended Genitourinary: Reports: no symptoms Neurologic/Psychiatric: Reports: no symptoms Subjective 70 YO M admitted with abdominal distention. Now ileus, obstructive uropathy and renal failure. Cover for Int Ayden-Dr Negro Objective Last Vital Signs Date Time Temp Pulse Resp B/P (MAP) Pulse Ox O2 Delivery O2 Flow Rate FiO2 06/16/20 16:00 98.6 91 148/79 (102) 06/16/20 12:00 19 97 06/16/20 09:00 Nasal Cannula 2.0 Laboratory Tests Test 06/16/20 06:01 06/16/20 11:39 06/16/20 16:41 White Blood Count 8.7 K/UL (4.8-10.8) Red Blood Count 4.44 M/UL (4.70-6.10) L Hemoglobin 12.7 G/DL (14.2-18.0) L Hematocrit 38.7 % (42.0-52.0) L Mean Corpuscular Volume 87 FL (80-99) Mean Corpuscular Hemoglobin 28.6 PG (27.0-31.0) Mean Corpuscular Hemoglobin Concent 32.9 G/DL (32.0-36.0) Red Cell Distribution Width 12.7 % (11.6-14.8) Platelet Count 228 K/UL (150-450) Mean Platelet Volume 7.3 FL (6.5-10.1) Neutrophils (%) (Auto) 68.2 % (45.0-75.0) Lymphocytes (%) (Auto) 16.1 % (20.0-45.0) L Monocytes (%) (Auto) 12.9 % (1.0-10.0) H Eosinophils (%) (Auto) 1.9 % (0.0-3.0) Basophils (%) (Auto) 1.0 % (0.0-2.0) Erythrocyte Sedimentation Rate 37 MM/HR (0-20) H Sodium Level 142 MMOL/L (136-145) Potassium Level 3.0 MMOL/L (3.5-5.1) L Chloride Level 102 MMOL/L (98-107) Carbon Dioxide Level 32 MMOL/L (21-32) Anion Gap 8 mmol/L (5-15) Blood Urea Nitrogen 7 mg/dL (7-18) Creatinine 0.7 MG/DL (0.55-1.30) # Estimat Glomerular Filtration Rate > 60 mL/min (>60) Glucose Level 151 MG/DL (74-106) H Uric Acid 5.7 MG/DL (2.6-7.2) Calcium Level 8.5 MG/DL (8.5-10.1) Phosphorus Level 2.0 MG/DL (2.5-4.9) L Magnesium Level 1.9 MG/DL (1.8-2.4) Iron Level 36 ug/dL (50-175) L Total Iron Binding Capacity 188 ug/dL (250-450) L Percent Iron Saturation 19 % (15-50) Unsaturated Iron Binding 152 ug/dL (112-346) Ferritin 194 NG/ML (8-388) Total Bilirubin 0.4 MG/DL (0.2-1.0) Gamma Glutamyl Transpeptidase 53 U/L (5-85) Aspartate Amino Transf (AST/SGOT) 18 U/L (15-37) Alanine Aminotransferase (ALT/SGPT) 30 U/L (12-78) Alkaline Phosphatase 62 U/L (46-116) Lactate Dehydrogenase 254 U/L (81-234) H Total Creatine Kinase 70 U/L (26-308) Troponin I 0.019 ng/mL (0.000-0.056) C-Reactive Protein, Quantitative 8.1 mg/dL (0.00-0.90) H Pro-B-Type Natriuretic Peptide 253 pg/mL (0-125) H Total Protein 6.3 G/DL (6.4-8.2) L Albumin 3.0 G/DL (3.4-5.0) L Globulin 3.3 g/dL Albumin/Globulin Ratio 0.9 (1.0-2.7) L Triglycerides Level 74 MG/DL (30-150) Cholesterol Level 140 MG/DL (< 200) LDL Cholesterol 74 mg/dL (<100) HDL Cholesterol 46 MG/DL (40-60) Cholesterol/HDL Ratio 3.0 (3.3-4.4) L Vitamin B12 Level 985 PG/ML (193-986) Folate 24.7 NG/ML (8.6-58.9) POC Whole Blood Glucose 184 MG/DL (74-106) H 112 MG/DL (74-106) H Microbiology Date/Time Source Procedure Growth Status 06/14/20 21:55 Nasopharynx SARS-CoV-2 RdRp Gene Assay - Final Complete 06/15/20 15:00 Stool Clostridium difficile Toxin Assay - Final Complete 06/14/20 20:40 Urine,Clean Catch Urine Culture - Preliminary NO GROWTH AFTER 24 HOURS Resulted 06/14/20 19:00 Rectum Received Intake and Output 06/15/20 06/16/20 19:00 07:00 Intake Total 335.5 ml Output Total 1600 ml Balance -1264.5 ml IV Total 335.5 ml Output Urine Total 1600 ml # Bowel Movements 5 Objective PHYSICAL EXAMINATION: GENERAL: The patient is a well-developed, well-nourished, male, in no apparent distress. HEENT: Eyes, pupils equal and responsive to light and accommodation. Extraocular movements are intact. NECK: Supple without lymphadenopathy. CHEST: Lungs are clear to auscultation bilaterally without wheezes or rales. CARDIOVASCULAR: Regular rhythm and rate. S1, S2 are normal without murmurs, rubs, or gallops. ABDOMEN: Soft, distended with decreased bowel sounds. No evidence of hepatosplenomegaly. Currently, no rebound or guarding noted. EXTREMITIES: Negative for clubbing, cyanosis, or edema. RECTAL: Not performed. GENITAL: Not performed. NEUROLOGICAL: Cranial nerves II through XII grossly intact without focal deficits. Motor strength is 5/5 throughout. Deep tendon reflexes are 2+, plantar. Assessment/Plan Assessment/Plan ASSESSMENT: This is a 70-year-old male with: 1. Obstructive uropathy. 2. Prostate enlargement. 3. Small-bowel ileus. 4. Bilateral hydronephrosis. 5. Diabetes type 2. 6. Hypertension. 7. Hypercholesterolemia. TREATMENT: 1. Small-bowel ileus. A Gastroenterology consultation has been obtained with Dr. Jimi Elizalde. Surgery=Dr. James. We will follow recommendations of Gastroenterology and surgery. Tolerating clear liquid diet 2. Obstructive uropathy/enlarged prostate. A Nephrology consultation has been obtained with Dr. Seth Goddard. A Urology consultation is pending with Dr. Puckett. The patient currently has a urinary catheter in place. 3. Bilateral hydronephrosis, probably secondary to obstructive uropathy secondary to prostatic enlargement. 4. Diabetes type 2. NovoLog sliding scale has been instituted. 5. Hypertension. Continue Norvasc as above. 6. Hypercholesterolemia. Continue atorvastatin as above. Brodie Lutz MD Jun 16, 2020 17:03
--- NOTE | 2020-06-16 19:15 | Consultation ---
DATE OF CONSULTATION: 06/16/2020 REASON FOR CONSULTATION: Obstructive uropathy. HISTORY OF PRESENT ILLNESS: A very pleasant gentleman, 70 years old, who presented with the chief complaint of abdominal pain and was found to have bilateral hydronephrosis and enlarged prostate. He was admitted several days ago with bowel obstruction and ileus. During the process of his evaluation, CT scan of the abdomen was done and revealed markedly distended bladder and enlarged prostate and bilateral hydronephrosis. He had a James catheter placed and now having significant urine output. PAST MEDICAL HISTORY: Significant for type 2 diabetes, hypertension, hypercholesterolemia. PAST SURGICAL HISTORY: Patient denies. MEDICATIONS: All reviewed. From urological medications, the patient is on tamsulosin 0.4 mg p.o. daily. ALLERGIES: No known allergies. PHYSICAL EXAM: GENERAL: He is afebrile. VITAL SIGNS: Stable. NEUROLOGIC: Intact. LUNGS: Clear to auscultation. CARDIOVASCULAR: Regular rate and rhythm. ABDOMEN: Soft and nontender. No suprapubic tenderness. RECTUM: Digital rectal exam revealed severely enlarged prostate. His CT scan was reviewed and showed the above findings. WBC is 8.7, and his chemistry shows a creatinine of 0.7 today. ASSESSMENT AND PLAN: I would keep the James catheter, and the patient most likely will have to go home with the James catheter and suppressive antibiotics. Decision needs to be made about his prostate surgery. I am covering for Dr. Puckett, and I will relay these findings and follow this patient with you. Jose Thurman M.D. DR: DANIELLE JOB#: [id number] CC:
--- NOTE | 2020-06-16 19:15 | NUR ---
NURSE NOTES: Received hand-off report from NETO Alcala. Patient is alert and oriented x3, no changes in LOC, monitoring coordinator in place, call light within reach, bed in lowest and locked position, bed alarm on. No acute signs of distress noted. Addendum: 06/16/20 at 2314 by Sebas Cross RN Bilaeral radial pulses are +2, no signs of redness, 2-fingerbreadth under restraints noted, skin is warm and intact, patient is resting comfortably. Addendum: 06/16/20 at 4 by Sebas Cross RN charted on the wrong patient (23:14, 06/16/20)
--- NOTE | 2020-06-16 19:30 | Consultation ---
DATE OF CONSULTATION: 06/16/2020 NOTE: INCOMPLETE DICTATION REASON FOR CONSULTATION: Obstructive uropathy. I was asked by Dr. Puckett to see the patient with obstructive uropathy. He is a very pleasant 70-year-old male. I spoke with him with the valve setter. Jose Thurman M.D. DR: DANIELLE JOB#: [id number] CC:
--- NOTE | 2020-06-16 19:37 | NUR ---
HAND-OFF: Report given to Sebas [id number].
--- NOTE | 2020-06-16 23:00 | NUR ---
NURSE NOTES: Inserted 22gauge IV on right forearm. IV is patent, intact and flushing well. No signs of redness, no leaking, no tenderness noted.
--- NOTE | 2020-06-16 23:14 | NUR ---
Vital signs are stable, patient in stable condition, no complaints of pain, educated on NPO order and verbalized understanding.
[2020-06-17] VITALS (8 sets, daily range): BP systolic 136–179; BP diastolic 75–91
[2020-06-17] MEDS: D5NS w/KCl 40mEq 1000ml 1,000 ML IV SCH (05:49)
[2020-06-17] MEDS: Piperacillin/Tazobactam 3.375 GM in NS 110 ML IVPB SCH ×3 (05:49→21:39)
[2020-06-17] MEDS: NovoLOG Insulin Flexpen SUBQ SCH ×4 (06:30→21:50)
[2020-06-17 06:41] LABS: BASOPHILS % (AUTO) 1.2 % (0.0-2.0); EOSINOPHILS % (AUTO) 4.8 % (0.0-3.0); HEMATOCRIT 40.9 % (42.0-52.0); HEMOGLOBIN 13.6 G/DL (14.2-18.0); LYMPHOCYTES % (AUTO) 24.8 % (20.0-45.0); MEAN CORPUSCULAR VOLUME 86 FL (80-99); MONOCYTES % (AUTO) 10.3 % (1.0-10.0); NEUTROPHILS % (AUTO) 58.9 % (45.0-75.0); PLATELET COUNT 264 K/UL (150-450); RED BLOOD COUNT 4.74 M/UL (4.70-6.10); RED CELL DISTRIBUTION WIDTH 12.4 % (11.6-14.8); WHITE BLOOD COUNT 8.7 K/UL (4.8-10.8)
--- NOTE | 2020-06-17 07:00 | NUR ---
HAND-OFF: Report given to NETO Thomas. Plan of care endorsed. Patient in stable condition.
[2020-06-17 07:16] LABS: ALANINE AMINOTRANSFERASE 31 U/L (12-78); ALBUMIN/GLOBULIN RATIO 0.9 (1.0-2.7); ALKALINE PHOSPHATASE 63 U/L (46-116); ANION GAP 8 mmol/L (5-15); ASPARTATE AMINO TRANSFERASE 20 U/L (15-37); BILIRUBIN,TOTAL 0.4 MG/DL (0.2-1.0); BLOOD UREA NITROGEN 4 mg/dL (7-18); CALCIUM 8.8 MG/DL (8.5-10.1); CARBON DIOXIDE 29 MMOL/L (21-32); CHLORIDE 103 MMOL/L (98-107); CREATININE 0.8 MG/DL (0.55-1.30); PHOSPHORUS 3.3 MG/DL (2.5-4.9); POTASSIUM 3.5 MMOL/L (3.5-5.1); SODIUM 140 MMOL/L (136-145)
--- NOTE | 2020-06-17 07:30 | NUR ---
NURSE NOTES: Received pt from RN. Pt is awake and alert, pt has NC 2LMP, pt has intact iv access LAC 20g is running well. pt is on continues heart monitoring. no complain of pain at this moment. Pt has hardin cath in place is working well. all needs attended, call light within easy reach. will continue to monitor.
[2020-06-17] MEDS: Pantoprazole Inj IVP SCH ×2 (08:46→21:37)
[2020-06-17] MEDS: Heparin 5000 units/ml inj SUBQ SCH ×2 (08:47→21:40)
--- NOTE | 2020-06-17 08:48 | NUR ---
NURSE NOTES: 10mg hydralazine wasted in med room.
--- NOTE | 2020-06-17 10:00 | General Progress Note ---
Assessment/Plan Problem List: (1) Abdominal pain ICD Codes: R10.9 - Unspecified abdominal pain SNOMED: 11160588 (2) SBO (small bowel obstruction) ICD Codes: K56.609 - Unspecified intestinal obstruction, unspecified as to partial versus complete obstruction SNOMED: 286141397 (3) Prostatitis ICD Codes: N41.9 - Inflammatory disease of prostate, unspecified SNOMED: 5049943 (4) Hydronephrosis ICD Codes: N13.30 - Unspecified hydronephrosis SNOMED: 73542385 (5) Urinary retention ICD Codes: R33.9 - Retention of urine, unspecified SNOMED: 249888786 Assessment/Plan: sbo has resolved last bm yesterday tolerating clears will advance diet fu surg and urology recs Subjective ROS Limited/Unobtainable: No Allergies: Coded Allergies: No Known Allergies (Unverified , 06/14/20) Objective Last 24 Hour Vital Signs Date Time Temp Pulse Resp B/P (MAP) Pulse Ox O2 Delivery O2 Flow Rate FiO2 06/17/20 08:46 179/86 06/17/20 08:00 96.4 98 20 179/86 (117) 95 06/17/20 06:25 98.0 06/17/20 04:00 73 06/17/20 04:00 Nasal Cannula 2.0 06/17/20 04:00 98.0 83 19 154/75 (101) 99 06/17/20 00:00 97.5 87 18 136/89 (105) 100 06/17/20 00:00 87 06/16/20 21:00 Nasal Cannula 2.0 06/16/20 20:00 97.9 95 16 130/95 (107) 98 06/16/20 20:00 95 06/16/20 16:00 98.6 91 148/79 (102) 06/16/20 16:00 96 06/16/20 15:08 91 170/92 (118) 06/16/20 15:08 170/92 06/16/20 12:00 97.7 79 19 167/84 (111) 97 06/16/20 12:00 84 Intake and Output 06/16/20 06/17/20 19:00 07:00 Intake Total 720 ml 300 ml Output Total 800 ml 2400 ml Balance -80 ml -2100 ml Intake Oral 720 ml Other 300 ml Output Urine Total 800 ml 2400 ml # Bowel Movements 4 Laboratory Tests 06/16/20 11:39: POC Whole Blood Glucose 184H 06/16/20 16:41: POC Whole Blood Glucose 112H 06/16/20 21:08: POC Whole Blood Glucose [Pending] 06/17/20 06:11: White Blood Count 8.7, Red Blood Count 4.74, Hemoglobin 13.6L, Hematocrit 40.9L , Mean Corpuscular Volume 86, Mean Corpuscular Hemoglobin 28.7, Mean Corpuscular Hemoglobin Concent 33.2, Red Cell Distribution Width 12.4, Platelet Count 264, Mean Platelet Volume 6.8, Neutrophils (%) (Auto) 58.9, Lymphocytes (% ) (Auto) 24.8, Monocytes (%) (Auto) 10.3H, Eosinophils (%) (Auto) 4.8H, Basophils (%) (Auto) 1.2, Erythrocyte Sedimentation Rate 24H, Sodium Level 140, Potassium Level 3.5, Chloride Level 103, Carbon Dioxide Level 29, Anion Gap 8, Blood Urea Nitrogen 4L, Creatinine 0.8, Estimat Glomerular Filtration Rate > 60 , Glucose Level 137H, Uric Acid 2.2L, Calcium Level 8.8, Phosphorus Level 3.3, Magnesium Level 1.5L, Total Bilirubin 0.4, Aspartate Amino Transf (AST/SGOT) 20 , Alanine Aminotransferase (ALT/SGPT) 31, Alkaline Phosphatase 63, C-Reactive Protein, Quantitative 4.5H, Pro-B-Type Natriuretic Peptide 283H, Total Protein 6.4, Albumin 3.0L, Globulin 3.4, Albumin/Globulin Ratio 0.9L Height (Feet): 5 Height (Inches): 6.00 Weight (Pounds): 168 General Appearance: no apparent distress EENT: normal ENT inspection Neck: supple Cardiovascular: normal rate Respiratory/Chest: decreased breath sounds Abdomen: normal bowel sounds, non tender, soft Extremities: non-tender Jimi Elizalde MD Jun 17, 2020 10:00
--- NOTE | 2020-06-17 10:14 | Nephrology Progress Note ---
Assessment/Plan Problem List: (1) Urinary retention (2) CHUNG (acute kidney injury) (3) Enlarged prostate (4) Hyponatremia (5) History of diabetes mellitus (6) History of hypertension Assessment Acute renal failure, most likely secondary to urinary outlet obstruction. Unclear if patient has underlying chronic kidney disease. Severe prostatic hypertrophy and BPH Abdominal pain, distention, possible SBO Electrolyte imbalance, hyponatremia Evidence of melena, possible upper GI bleed Possible pneumonia Cholelithiasis Plan June 17: Diet is advanced. Will stop IV fluid. Renal parameters within normal range. Magnesium IV given. Will monitor the electrolytes. Hydration, adjust IV fluid as needed Correct electrolytes Monitor renal parameters and electrolytes Monitor H&H Kidney ultrasound, noted 2D echocardiogram, ejection fraction 60 to 65% Per consultants Per orders Kidney ultrasound impression: Negative for hydronephrosis. Hydronephrosis reported on previous day's abdominal sonogram has resolved, likely as a result of interim bladder decompression Free intraperitoneal fluid, also previously demonstrated Empty bladder with a James catheter. Subjective ROS Limited/Unobtainable: No Constitutional: Reports: malaise Objective Objective Last 24 Hour Vital Signs Date Time Temp Pulse Resp B/P (MAP) Pulse Ox O2 Delivery O2 Flow Rate FiO2 06/17/20 08:46 179/86 06/17/20 08:00 96.4 98 20 179/86 (117) 95 06/17/20 06:25 98.0 06/17/20 04:00 73 06/17/20 04:00 Nasal Cannula 2.0 06/17/20 04:00 98.0 83 19 154/75 (101) 99 06/17/20 00:00 97.5 87 18 136/89 (105) 100 06/17/20 00:00 87 06/16/20 21:00 Nasal Cannula 2.0 06/16/20 20:00 97.9 95 16 130/95 (107) 98 06/16/20 20:00 95 06/16/20 16:00 98.6 91 148/79 (102) 06/16/20 16:00 96 06/16/20 15:08 91 170/92 (118) 06/16/20 15:08 170/92 06/16/20 12:00 97.7 79 19 167/84 (111) 97 06/16/20 12:00 84 Intake and Output 06/16/20 06/17/20 19:00 07:00 Intake Total 720 ml 300 ml Output Total 800 ml 2400 ml Balance -80 ml -2100 ml Intake Oral 720 ml Other 300 ml Output Urine Total 800 ml 2400 ml # Bowel Movements 4 Laboratory Tests 06/16/20 11:39: POC Whole Blood Glucose 184H 06/16/20 16:41: POC Whole Blood Glucose 112H 06/16/20 21:08: POC Whole Blood Glucose [Pending] 06/17/20 06:11: White Blood Count 8.7, Red Blood Count 4.74, Hemoglobin 13.6L, Hematocrit 40.9L , Mean Corpuscular Volume 86, Mean Corpuscular Hemoglobin 28.7, Mean Corpuscular Hemoglobin Concent 33.2, Red Cell Distribution Width 12.4, Platelet Count 264, Mean Platelet Volume 6.8, Neutrophils (%) (Auto) 58.9, Lymphocytes (% ) (Auto) 24.8, Monocytes (%) (Auto) 10.3H, Eosinophils (%) (Auto) 4.8H, Basophils (%) (Auto) 1.2, Erythrocyte Sedimentation Rate 24H, Sodium Level 140, Potassium Level 3.5, Chloride Level 103, Carbon Dioxide Level 29, Anion Gap 8, Blood Urea Nitrogen 4L, Creatinine 0.8, Estimat Glomerular Filtration Rate > 60 , Glucose Level 137H, Uric Acid 2.2L, Calcium Level 8.8, Phosphorus Level 3.3, Magnesium Level 1.5L, Total Bilirubin 0.4, Aspartate Amino Transf (AST/SGOT) 20 , Alanine Aminotransferase (ALT/SGPT) 31, Alkaline Phosphatase 63, C-Reactive Protein, Quantitative 4.5H, Pro-B-Type Natriuretic Peptide 283H, Total Protein 6.4, Albumin 3.0L, Globulin 3.4, Albumin/Globulin Ratio 0.9L Height (Feet): 5 Height (Inches): 6.00 Weight (Pounds): 168 General Appearance: no apparent distress Cardiovascular: normal rate - Rate 75-95 Respiratory/Chest: decreased breath sounds Abdomen: soft Seth Goddard MD Jun 17, 2020 10:14
--- NOTE | 2020-06-17 12:29 | Internal Med Progress Note ---
Subjective Date of Service: Jun 17, 2020 Physician Name LutzBrodie Attending Physician Serge Negro MD Current Medications Medications (Trade) Dose Ordered Sig/Chaim Route PRN Reason Start Time Stop Time Status Last Admin Dose Admin Acetaminophen (Tylenol) 650 mg Q4H PRN ORAL fever (T>100.5F) 06/14/20 20:30 07/14/20 20:29 06/17/20 05:55 Acetaminophen (Tylenol) 650 mg Q4H PRN ORAL Mild Pain (1-3) or Headache 06/16/20 13:45 07/16/20 13:44 06/17/20 10:29 Dextrose (Dextrose 50%) 25 ml Q30M PRN IV Hypoglycemia 06/14/20 20:30 09/12/20 20:29 Dextrose (Dextrose 50%) 50 ml Q30M PRN IV Hypoglycemia 06/14/20 20:30 09/12/20 20:29 Diphenhydramine HCl (Benadryl) 25 mg Q6H PRN ORAL Itching/Pruritis 06/14/20 20:30 07/14/20 20:29 Heparin Sodium (Porcine) (Heparin 5000 units/ml) 5,000 units EVERY 12 HOURS SUBQ 06/14/20 21:00 07/29/20 20:59 06/17/20 08:47 Hydralazine HCl (Apresoline) 10 mg Q4H PRN IV BP over 160 systolic 06/15/20 12:00 09/13/20 11:59 06/17/20 08:46 Insulin Aspart (NovoLOG) BEFORE MEALS AND HS SUBQ 06/14/20 22:00 09/12/20 21:59 06/17/20 11:29 Magnesium Sulfate 100 ml @ 100 mls/hr Q1H IVPB 06/17/20 09:00 06/17/20 12:59 06/17/20 11:29 Nitroglycerin (Ntg) 0.4 mg Q5M X 3 DOSES PRN SL Prn Chest Pain 06/14/20 20:30 07/14/20 20:29 Ondansetron HCl (Zofran) 4 mg Q6H PRN IVP Nausea & Vomiting 06/14/20 20:30 07/14/20 20:29 06/17/20 00:29 Pantoprazole (Protonix) 40 mg EVERY 12 HOURS IVP 06/15/20 12:00 07/15/20 11:59 06/17/20 08:46 Piperacillin Sod/ Tazobactam Sod 3.375 gm/Sodium Chloride 110 ml @ 27.5 mls/hr EVERY 8 HOURS IVPB 06/16/20 14:00 06/21/20 13:59 06/17/20 05:49 Polyethylene Glycol (Miralax) 17 gm HSPRN PRN ORAL Constipation 06/14/20 20:30 07/14/20 20:29 Temazepam (Restoril) 15 mg HSPRN PRN ORAL Insomnia 06/14/20 20:30 06/21/20 20:29 Allergies: Coded Allergies: No Known Allergies (Unverified , 06/14/20) ROS Limited/Unobtainable: No Constitutional: Reports: no symptoms HEENT: Reports: no symptoms Cardiovascular: Reports: no symptoms Respiratory: Reports: no symptoms Gastrointestinal/Abdominal: Reports: abdomen distended, abdominal pain Genitourinary: Reports: no symptoms Neurologic/Psychiatric: Reports: no symptoms Subjective 70 YO M admitted with abdominal distention. Now ileus, obstructive uropathy and renal failure. Cover for Int Med-Dr Negro Objective Last Vital Signs Date Time Temp Pulse Resp B/P (MAP) Pulse Ox O2 Delivery O2 Flow Rate FiO2 06/17/20 12:00 97.9 93 20 151/76 (101) 98 06/17/20 09:00 Nasal Cannula 2.0 Laboratory Tests Test 06/16/20 16:41 06/16/20 21:08 06/17/20 06:09 06/17/20 06:11 POC Whole Blood Glucose 112 MG/DL (74-106) H Pending Pending White Blood Count 8.7 K/UL (4.8-10.8) Red Blood Count 4.74 M/UL (4.70-6.10) Hemoglobin 13.6 G/DL (14.2-18.0) L Hematocrit 40.9 % (42.0-52.0) L Mean Corpuscular Volume 86 FL (80-99) Mean Corpuscular Hemoglobin 28.7 PG (27.0-31.0) Mean Corpuscular Hemoglobin Concent 33.2 G/DL (32.0-36.0) Red Cell Distribution Width 12.4 % (11.6-14.8) Platelet Count 264 K/UL (150-450) Mean Platelet Volume 6.8 FL (6.5-10.1) Neutrophils (%) (Auto) 58.9 % (45.0-75.0) Lymphocytes (%) (Auto) 24.8 % (20.0-45.0) Monocytes (%) (Auto) 10.3 % (1.0-10.0) H Eosinophils (%) (Auto) 4.8 % (0.0-3.0) H Basophils (%) (Auto) 1.2 % (0.0-2.0) Erythrocyte Sedimentation Rate 24 MM/HR (0-20) H Sodium Level 140 MMOL/L (136-145) Potassium Level 3.5 MMOL/L (3.5-5.1) Chloride Level 103 MMOL/L (98-107) Carbon Dioxide Level 29 MMOL/L (21-32) Anion Gap 8 mmol/L (5-15) Blood Urea Nitrogen 4 mg/dL (7-18) L Creatinine 0.8 MG/DL (0.55-1.30) Estimat Glomerular Filtration Rate > 60 mL/min (>60) Glucose Level 137 MG/DL (74-106) H Uric Acid 2.2 MG/DL (2.6-7.2) L Calcium Level 8.8 MG/DL (8.5-10.1) Phosphorus Level 3.3 MG/DL (2.5-4.9) Magnesium Level 1.5 MG/DL (1.8-2.4) L Total Bilirubin 0.4 MG/DL (0.2-1.0) Aspartate Amino Transf (AST/SGOT) 20 U/L (15-37) Alanine Aminotransferase (ALT/SGPT) 31 U/L (12-78) Alkaline Phosphatase 63 U/L (46-116) C-Reactive Protein, Quantitative 4.5 mg/dL (0.00-0.90) H Pro-B-Type Natriuretic Peptide 283 pg/mL (0-125) H Total Protein 6.4 G/DL (6.4-8.2) Albumin 3.0 G/DL (3.4-5.0) L Globulin 3.4 g/dL Albumin/Globulin Ratio 0.9 (1.0-2.7) L Test 06/17/20 11:11 POC Whole Blood Glucose 158 MG/DL (74-106) H Microbiology Date/Time Source Procedure Growth Status 06/14/20 21:55 Nasopharynx SARS-CoV-2 RdRp Gene Assay - Final Complete 06/14/20 19:00 Nasal Nares MRSA Culture - Final NO METHICILLIN RESISTANT STAPH AUREUS... Complete 06/15/20 15:00 Stool Clostridium difficile Toxin Assay - Final Complete 06/14/20 20:40 Urine,Clean Catch Urine Culture - Final Gram Negative Domingo Complete 06/14/20 19:00 Rectum - Final NO CARBAPENEM-RESISTANT ENTEROBACTERI... Complete 06/14/20 19:00 Rectum VRE Culture - Final NO VANCOMYCIN RESISTANT ENTEROCOCCUS ... Complete Intake and Output 06/16/20 06/17/20 19:00 07:00 Intake Total 720 ml 350 ml Output Total 800 ml 2400 ml Balance -80 ml -2050 ml Intake Oral 720 ml IV Total 50 ml Other 300 ml Output Urine Total 800 ml 2400 ml # Bowel Movements 4 Objective PHYSICAL EXAMINATION: GENERAL: The patient is a well-developed, well-nourished, male, in no apparent distress. HEENT: Eyes, pupils equal and responsive to light and accommodation. Extraocular movements are intact. NECK: Supple without lymphadenopathy. CHEST: Lungs are clear to auscultation bilaterally without wheezes or rales. CARDIOVASCULAR: Regular rhythm and rate. S1, S2 are normal without murmurs, rubs, or gallops. ABDOMEN: Soft, distended with decreased bowel sounds. No evidence of hepatosplenomegaly. Currently, no rebound or guarding noted. EXTREMITIES: Negative for clubbing, cyanosis, or edema. RECTAL: Not performed. GENITAL: Not performed. NEUROLOGICAL: Cranial nerves II through XII grossly intact without focal deficits. Motor strength is 5/5 throughout. Deep tendon reflexes are 2+, plantar. Assessment/Plan Assessment/Plan ASSESSMENT: This is a 70-year-old male with: 1. Obstructive uropathy. 2. Prostate enlargement. 3. Small-bowel ileus. 4. Bilateral hydronephrosis. 5. Diabetes type 2. 6. Hypertension. 7. Hypercholesterolemia. TREATMENT: 1. Small-bowel ileus. A Gastroenterology consultation has been obtained with Dr. Jimi Elizalde. Surgery=Dr. James. We will follow recommendations of Gastroenterology and surgery. Tolerating clear liquid diet 2. Obstructive uropathy/enlarged prostate. A Nephrology consultation has been obtained with Dr. Seth Goddard. Urology consultation = Dr Thurman. The patient currently has a urinary catheter in place. 3. Bilateral hydronephrosis, probably secondary to obstructive uropathy secondary to prostatic enlargement. 4. Diabetes type 2. NovoLog sliding scale has been instituted. 5. Hypertension. Continue Norvasc as above. 6. Hypercholesterolemia. Continue atorvastatin as above. Brodie Lutz MD Jun 17, 2020 12:29
--- NOTE | 2020-06-17 13:19 | Pulmonology Progress Note ---
Subjective ROS Limited/Unobtainable: No Interval Events: ng is out, on clear liquid Allergies: Coded Allergies: No Known Allergies (Unverified , 06/14/20) Objective Last 24 Hour Vital Signs Date Time Temp Pulse Resp B/P (MAP) Pulse Ox O2 Delivery O2 Flow Rate FiO2 06/17/20 12:00 97.9 93 20 151/76 (101) 98 06/17/20 11:31 86 06/17/20 10:00 161/83 (109) 06/17/20 09:00 Nasal Cannula 2.0 06/17/20 08:46 179/86 06/17/20 08:00 96.4 98 20 179/86 (117) 95 06/17/20 07:48 74 06/17/20 06:25 98.0 06/17/20 04:00 73 06/17/20 04:00 Nasal Cannula 2.0 06/17/20 04:00 98.0 83 19 154/75 (101) 99 06/17/20 00:00 97.5 87 18 136/89 (105) 100 06/17/20 00:00 87 06/16/20 21:00 Nasal Cannula 2.0 06/16/20 20:00 97.9 95 16 130/95 (107) 98 06/16/20 20:00 95 06/16/20 16:00 98.6 91 148/79 (102) 06/16/20 16:00 96 06/16/20 15:08 91 170/92 (118) 06/16/20 15:08 170/92 Intake and Output 06/16/20 06/17/20 19:00 07:00 Intake Total 720 ml 350 ml Output Total 800 ml 2400 ml Balance -80 ml -2050 ml Intake Oral 720 ml IV Total 50 ml Other 300 ml Output Urine Total 800 ml 2400 ml # Bowel Movements 4 General Appearance: WD/WN HEENT: normocephalic Respiratory: chest wall non-tender, lungs clear Cardiovascular: normal peripheral pulses, normal rate, regular rhythm Abdomen: normal bowel sounds, soft, non tender Genitourinary: normal external genitalia Extremities: no cyanosis Skin: no rash Neurologic: co director II-XII grossly normal Lymphatic: no neck adenopathy Microbiology Date/Time Source Procedure Growth Status 06/14/20 21:55 Nasopharynx SARS-CoV-2 RdRp Gene Assay - Final Complete 06/14/20 19:00 Nasal Nares MRSA Culture - Final NO METHICILLIN RESISTANT STAPH AUREUS... Complete 06/15/20 15:00 Stool Clostridium difficile Toxin Assay - Final Complete 06/14/20 20:40 Urine,Clean Catch Urine Culture - Final Gram Negative Domingo Complete 06/14/20 19:00 Rectum - Final NO CARBAPENEM-RESISTANT ENTEROBACTERI... Complete 06/14/20 19:00 Rectum VRE Culture - Final NO VANCOMYCIN RESISTANT ENTEROCOCCUS ... Complete Laboratory Tests 06/16/20 16:41: POC Whole Blood Glucose 112H 06/16/20 21:08: POC Whole Blood Glucose [Pending] 06/17/20 06:09: POC Whole Blood Glucose [Pending] 06/17/20 06:11: White Blood Count 8.7, Red Blood Count 4.74, Hemoglobin 13.6L, Hematocrit 40.9L , Mean Corpuscular Volume 86, Mean Corpuscular Hemoglobin 28.7, Mean Corpuscular Hemoglobin Concent 33.2, Red Cell Distribution Width 12.4, Platelet Count 264, Mean Platelet Volume 6.8, Neutrophils (%) (Auto) 58.9, Lymphocytes (% ) (Auto) 24.8, Monocytes (%) (Auto) 10.3H, Eosinophils (%) (Auto) 4.8H, Basophils (%) (Auto) 1.2, Erythrocyte Sedimentation Rate 24H, Sodium Level 140, Potassium Level 3.5, Chloride Level 103, Carbon Dioxide Level 29, Anion Gap 8, Blood Urea Nitrogen 4L, Creatinine 0.8, Estimat Glomerular Filtration Rate > 60 , Glucose Level 137H, Uric Acid 2.2L, Calcium Level 8.8, Phosphorus Level 3.3, Magnesium Level 1.5L, Total Bilirubin 0.4, Aspartate Amino Transf (AST/SGOT) 20 , Alanine Aminotransferase (ALT/SGPT) 31, Alkaline Phosphatase 63, C-Reactive Protein, Quantitative 4.5H, Pro-B-Type Natriuretic Peptide 283H, Total Protein 6.4, Albumin 3.0L, Globulin 3.4, Albumin/Globulin Ratio 0.9L 06/17/20 11:11: POC Whole Blood Glucose 158H Current Medications Medications (Trade) Dose Ordered Sig/Chaim Route PRN Reason Start Time Stop Time Status Last Admin Dose Admin Acetaminophen (Tylenol) 650 mg Q4H PRN ORAL fever (T>100.5F) 06/14/20 20:30 07/14/20 20:29 06/17/20 05:55 Acetaminophen (Tylenol) 650 mg Q4H PRN ORAL Mild Pain (1-3) or Headache 06/16/20 13:45 07/16/20 13:44 06/17/20 10:29 Dextrose (Dextrose 50%) 25 ml Q30M PRN IV Hypoglycemia 06/14/20 20:30 09/12/20 20:29 Dextrose (Dextrose 50%) 50 ml Q30M PRN IV Hypoglycemia 06/14/20 20:30 09/12/20 20:29 Diphenhydramine HCl (Benadryl) 25 mg Q6H PRN ORAL Itching/Pruritis 06/14/20 20:30 07/14/20 20:29 Heparin Sodium (Porcine) (Heparin 5000 units/ml) 5,000 units EVERY 12 HOURS SUBQ 06/14/20 21:00 07/29/20 20:59 06/17/20 08:47 Hydralazine HCl (Apresoline) 10 mg Q4H PRN IV BP over 160 systolic 06/15/20 12:00 09/13/20 11:59 06/17/20 08:46 Insulin Aspart (NovoLOG) BEFORE MEALS AND HS SUBQ 06/14/20 22:00 09/12/20 21:59 06/17/20 11:29 Nitroglycerin (Ntg) 0.4 mg Q5M X 3 DOSES PRN SL Prn Chest Pain 06/14/20 20:30 07/14/20 20:29 Ondansetron HCl (Zofran) 4 mg Q6H PRN IVP Nausea & Vomiting 06/14/20 20:30 07/14/20 20:29 06/17/20 00:29 Pantoprazole (Protonix) 40 mg EVERY 12 HOURS IVP 06/15/20 12:00 07/15/20 11:59 06/17/20 08:46 Piperacillin Sod/ Tazobactam Sod 3.375 gm/Sodium Chloride 110 ml @ 27.5 mls/hr EVERY 8 HOURS IVPB 06/16/20 14:00 06/21/20 13:59 06/17/20 13:05 Polyethylene Glycol (Miralax) 17 gm HSPRN PRN ORAL Constipation 06/14/20 20:30 07/14/20 20:29 Temazepam (Restoril) 15 mg HSPRN PRN ORAL Insomnia 06/14/20 20:30 06/21/20 20:29 Assessment/Plan Problems: (1) Intractable abdominal pain (2) SBO (small bowel obstruction) (3) Cholecystitis (4) Urinary retention (5) Hydronephrosis (6) History of hypertension (7) History of diabetes mellitus Assessment/Plan advance diet IV fluids with K supplement sliding scale check electrolytes renal evaluation GI consultn appreciated Charlene Penaloza MD Jun 17, 2020 13:19
--- NOTE | 2020-06-17 14:01 | Infectious Diseases Prog Note ---
Assessment/Plan Assessment: Probable UTI Obstructive uropathy Ileus -06/14 u/a 15-20, nit neg, leuk +1; ucx <10 GNR -CT abd/p: Massive prostatomegaly with severely distended urinary bladder and bilateral moderate hydroureteronephrosis could represent obstructive uropathy. Recommend James catheterization Distended fluid-filled large and small bowel loops suggests ileus, no findings to suggest suzi obstruction. Respiratory motion artifact limits evaluation of the lung bases, patchy ill- defined groundglass or mosaic attenuation of the lungs and dependent atelectasis present. Cholelithiasis without findings to suggest acute cholecystitis. -Abd US: STUDY LIMITED DUE TO BODY HABITUS AND OVERLYING BOWEL GAS. FATTY CHANGE NOTED IN THE VISUALIZED PORTIONS OF THE LIVER. GALLSTONE. MILD BILATERAL HYDRONEPHROSIS. PANCREAS AND AORTA AND CAVA ARE OBSCURED. R/o probable PNA -06/17 CXR p -KUB: Bilateral retrocardiac ill-defined opacities represent dependent atelectasis, without or with some component of consolidation. Low lung volumes with bronchovascular crowding, lung structures would be better visualized on dedicated chest radiographs. -06/14 Rapid COVID NAAT neg Afebrile Leukocytosis, SP -06/15 Cdiff neg CHUNG, SP -REnal US: Negative for hydronephrosis. Hydronephrosis reported on previous day's abdominal sonogram has resolved, likely as a result of interim bladder decompression. Free intraperitoneal fluid, also previously demonstrated. Empty bladder with a James catheter. DM2 HTN HLD BPH [id number] resident Plan: -Continue empiric Zosyn #2 pending cultures -06/14 SP CEftriaxone x1 -f/u cx -Monitor CBC/CMP, temperatures -Neprho, uro f/u -aspiration precautions -f/u CXR Thank you for this consultation. Will continue to follow along with you. Discussed with RN. Subjective Allergies: Coded Allergies: No Known Allergies (Unverified , 06/14/20) Objective Last 24 Hour Vital Signs Date Time Temp Pulse Resp B/P (MAP) Pulse Ox O2 Delivery O2 Flow Rate FiO2 06/17/20 12:00 97.9 93 20 151/76 (101) 98 06/17/20 11:31 86 06/17/20 10:00 161/83 (109) 06/17/20 09:00 Nasal Cannula 2.0 06/17/20 08:46 179/86 06/17/20 08:00 96.4 98 20 179/86 (117) 95 06/17/20 07:48 74 06/17/20 06:25 98.0 06/17/20 04:00 73 06/17/20 04:00 Nasal Cannula 2.0 06/17/20 04:00 98.0 83 19 154/75 (101) 99 06/17/20 00:00 97.5 87 18 136/89 (105) 100 06/17/20 00:00 87 06/16/20 21:00 Nasal Cannula 2.0 06/16/20 20:00 97.9 95 16 130/95 (107) 98 06/16/20 20:00 95 06/16/20 16:00 98.6 91 148/79 (102) 06/16/20 16:00 96 06/16/20 15:08 91 170/92 (118) 06/16/20 15:08 170/92 Height (Feet): 5 Height (Inches): 6.00 Weight (Pounds): 168 General Appearance: WD/WN, no apparent distress Lines, tubes and drains: peripheral HEENT: normocephalic, atraumatic Neck: non-tender, normal alignment, supple Respiratory/Chest: chest wall non-tender, lungs clear Cardiovascular/Chest: normal peripheral pulses Abdomen: normal bowel sounds Extremities: normal range of motion Skin Exam: normal pigmentation Microbiology Date/Time Source Procedure Growth Status 06/14/20 21:55 Nasopharynx SARS-CoV-2 RdRp Gene Assay - Final Complete 06/14/20 19:00 Nasal Nares MRSA Culture - Final NO METHICILLIN RESISTANT STAPH AUREUS... Complete 06/15/20 15:00 Stool Clostridium difficile Toxin Assay - Final Complete 06/14/20 20:40 Urine,Clean Catch Urine Culture - Final Gram Negative Domingo Complete 06/14/20 19:00 Rectum - Final NO CARBAPENEM-RESISTANT ENTEROBACTERI... Complete 06/14/20 19:00 Rectum VRE Culture - Final NO VANCOMYCIN RESISTANT ENTEROCOCCUS ... Complete Laboratory Tests Test 06/16/20 16:41 06/16/20 21:08 06/17/20 06:09 06/17/20 06:11 POC Whole Blood Glucose 112 MG/DL (74-106) H Pending Pending White Blood Count 8.7 K/UL (4.8-10.8) Red Blood Count 4.74 M/UL (4.70-6.10) Hemoglobin 13.6 G/DL (14.2-18.0) L Hematocrit 40.9 % (42.0-52.0) L Mean Corpuscular Volume 86 FL (80-99) Mean Corpuscular Hemoglobin 28.7 PG (27.0-31.0) Mean Corpuscular Hemoglobin Concent 33.2 G/DL (32.0-36.0) Red Cell Distribution Width 12.4 % (11.6-14.8) Platelet Count 264 K/UL (150-450) Mean Platelet Volume 6.8 FL (6.5-10.1) Neutrophils (%) (Auto) 58.9 % (45.0-75.0) Lymphocytes (%) (Auto) 24.8 % (20.0-45.0) Monocytes (%) (Auto) 10.3 % (1.0-10.0) H Eosinophils (%) (Auto) 4.8 % (0.0-3.0) H Basophils (%) (Auto) 1.2 % (0.0-2.0) Erythrocyte Sedimentation Rate 24 MM/HR (0-20) H Sodium Level 140 MMOL/L (136-145) Potassium Level 3.5 MMOL/L (3.5-5.1) Chloride Level 103 MMOL/L (98-107) Carbon Dioxide Level 29 MMOL/L (21-32) Anion Gap 8 mmol/L (5-15) Blood Urea Nitrogen 4 mg/dL (7-18) L Creatinine 0.8 MG/DL (0.55-1.30) Estimat Glomerular Filtration Rate > 60 mL/min (>60) Glucose Level 137 MG/DL (74-106) H Uric Acid 2.2 MG/DL (2.6-7.2) L Calcium Level 8.8 MG/DL (8.5-10.1) Phosphorus Level 3.3 MG/DL (2.5-4.9) Magnesium Level 1.5 MG/DL (1.8-2.4) L Total Bilirubin 0.4 MG/DL (0.2-1.0) Aspartate Amino Transf (AST/SGOT) 20 U/L (15-37) Alanine Aminotransferase (ALT/SGPT) 31 U/L (12-78) Alkaline Phosphatase 63 U/L (46-116) C-Reactive Protein, Quantitative 4.5 mg/dL (0.00-0.90) H Pro-B-Type Natriuretic Peptide 283 pg/mL (0-125) H Total Protein 6.4 G/DL (6.4-8.2) Albumin 3.0 G/DL (3.4-5.0) L Globulin 3.4 g/dL Albumin/Globulin Ratio 0.9 (1.0-2.7) L Test 06/17/20 11:11 POC Whole Blood Glucose 158 MG/DL (74-106) H Current Medications Medications (Trade) Dose Ordered Sig/Chaim Route PRN Reason Start Time Stop Time Status Last Admin Dose Admin Acetaminophen (Tylenol) 650 mg Q4H PRN ORAL fever (T>100.5F) 06/14/20 20:30 07/14/20 20:29 06/17/20 05:55 Acetaminophen (Tylenol) 650 mg Q4H PRN ORAL Mild Pain (1-3) or Headache 06/16/20 13:45 07/16/20 13:44 06/17/20 10:29 Dextrose (Dextrose 50%) 25 ml Q30M PRN IV Hypoglycemia 06/14/20 20:30 09/12/20 20:29 Dextrose (Dextrose 50%) 50 ml Q30M PRN IV Hypoglycemia 06/14/20 20:30 09/12/20 20:29 Diphenhydramine HCl (Benadryl) 25 mg Q6H PRN ORAL Itching/Pruritis 06/14/20 20:30 07/14/20 20:29 Heparin Sodium (Porcine) (Heparin 5000 units/ml) 5,000 units EVERY 12 HOURS SUBQ 06/14/20 21:00 07/29/20 20:59 06/17/20 08:47 Hydralazine HCl (Apresoline) 10 mg Q4H PRN IV BP over 160 systolic 06/15/20 12:00 09/13/20 11:59 06/17/20 08:46 Insulin Aspart (NovoLOG) BEFORE MEALS AND HS SUBQ 06/14/20 22:00 09/12/20 21:59 06/17/20 11:29 Nitroglycerin (Ntg) 0.4 mg Q5M X 3 DOSES PRN SL Prn Chest Pain 06/14/20 20:30 07/14/20 20:29 Ondansetron HCl (Zofran) 4 mg Q6H PRN IVP Nausea & Vomiting 06/14/20 20:30 07/14/20 20:29 06/17/20 00:29 Pantoprazole (Protonix) 40 mg EVERY 12 HOURS IVP 06/15/20 12:00 07/15/20 11:59 06/17/20 08:46 Piperacillin Sod/ Tazobactam Sod 3.375 gm/Sodium Chloride 110 ml @ 27.5 mls/hr EVERY 8 HOURS IVPB 06/16/20 14:00 06/21/20 13:59 06/17/20 13:05 Polyethylene Glycol (Miralax) 17 gm HSPRN PRN ORAL Constipation 06/14/20 20:30 07/14/20 20:29 Temazepam (Restoril) 15 mg HSPRN PRN ORAL Insomnia 06/14/20 20:30 06/21/20 20:29 Aleida Arboleda M.D. Jun 17, 2020 14:01
--- NOTE | 2020-06-17 14:06 | Surgery Progress Note ---
Surgery Progress Note Subjective Additional Comments no acute events comfortable stable no n/v/f/c labs reviewed abd pain imroved tolerated diet Objective Last 24 Hour Vital Signs Date Time Temp Pulse Resp B/P (MAP) Pulse Ox O2 Delivery O2 Flow Rate FiO2 06/17/20 12:00 97.9 93 20 151/76 (101) 98 06/17/20 11:31 86 06/17/20 10:00 161/83 (109) 06/17/20 09:00 Nasal Cannula 2.0 06/17/20 08:46 179/86 06/17/20 08:00 96.4 98 20 179/86 (117) 95 06/17/20 07:48 74 06/17/20 06:25 98.0 06/17/20 04:00 73 06/17/20 04:00 Nasal Cannula 2.0 06/17/20 04:00 98.0 83 19 154/75 (101) 99 06/17/20 00:00 97.5 87 18 136/89 (105) 100 06/17/20 00:00 87 06/16/20 21:00 Nasal Cannula 2.0 06/16/20 20:00 97.9 95 16 130/95 (107) 98 06/16/20 20:00 95 06/16/20 16:00 98.6 91 148/79 (102) 06/16/20 16:00 96 06/16/20 15:08 91 170/92 (118) 06/16/20 15:08 170/92 I&O Intake and Output 06/16/20 06/17/20 19:00 07:00 Intake Total 720 ml 350 ml Output Total 800 ml 2400 ml Balance -80 ml -2050 ml Intake Oral 720 ml IV Total 50 ml Other 300 ml Output Urine Total 800 ml 2400 ml # Bowel Movements 4 Dressing: other Wound: other Drains: other Cardiovascular: RSR Respiratory: decreased breath sounds Abdomen: soft, non-tender, present bowel sounds Extremities: no edema, no tenderness, no cyanosis Laboratory Tests Test 06/16/20 16:41 06/16/20 21:08 06/17/20 06:09 06/17/20 06:11 POC Whole Blood Glucose 112 MG/DL (74-106) H Pending Pending White Blood Count 8.7 K/UL (4.8-10.8) Red Blood Count 4.74 M/UL (4.70-6.10) Hemoglobin 13.6 G/DL (14.2-18.0) L Hematocrit 40.9 % (42.0-52.0) L Mean Corpuscular Volume 86 FL (80-99) Mean Corpuscular Hemoglobin 28.7 PG (27.0-31.0) Mean Corpuscular Hemoglobin Concent 33.2 G/DL (32.0-36.0) Red Cell Distribution Width 12.4 % (11.6-14.8) Platelet Count 264 K/UL (150-450) Mean Platelet Volume 6.8 FL (6.5-10.1) Neutrophils (%) (Auto) 58.9 % (45.0-75.0) Lymphocytes (%) (Auto) 24.8 % (20.0-45.0) Monocytes (%) (Auto) 10.3 % (1.0-10.0) H Eosinophils (%) (Auto) 4.8 % (0.0-3.0) H Basophils (%) (Auto) 1.2 % (0.0-2.0) Erythrocyte Sedimentation Rate 24 MM/HR (0-20) H Sodium Level 140 MMOL/L (136-145) Potassium Level 3.5 MMOL/L (3.5-5.1) Chloride Level 103 MMOL/L (98-107) Carbon Dioxide Level 29 MMOL/L (21-32) Anion Gap 8 mmol/L (5-15) Blood Urea Nitrogen 4 mg/dL (7-18) L Creatinine 0.8 MG/DL (0.55-1.30) Estimat Glomerular Filtration Rate > 60 mL/min (>60) Glucose Level 137 MG/DL (74-106) H Uric Acid 2.2 MG/DL (2.6-7.2) L Calcium Level 8.8 MG/DL (8.5-10.1) Phosphorus Level 3.3 MG/DL (2.5-4.9) Magnesium Level 1.5 MG/DL (1.8-2.4) L Total Bilirubin 0.4 MG/DL (0.2-1.0) Aspartate Amino Transf (AST/SGOT) 20 U/L (15-37) Alanine Aminotransferase (ALT/SGPT) 31 U/L (12-78) Alkaline Phosphatase 63 U/L (46-116) C-Reactive Protein, Quantitative 4.5 mg/dL (0.00-0.90) H Pro-B-Type Natriuretic Peptide 283 pg/mL (0-125) H Total Protein 6.4 G/DL (6.4-8.2) Albumin 3.0 G/DL (3.4-5.0) L Globulin 3.4 g/dL Albumin/Globulin Ratio 0.9 (1.0-2.7) L Test 06/17/20 11:11 POC Whole Blood Glucose 158 MG/DL (74-106) H Plan Problems: (1) Intractable abdominal pain Assessment & Plan: 70-year-old male with abdominal pain distention. CT noted as below. Currently no nausea vomiting fever chills. States he feels better. NG tube was placed minimal output since. Labs noted improved. No acute surgical intervention planned at this time. Likely ileus which is now resolving. NG tube has been discontinued patient events are with oral diet. Will monitor with serial abdominal examinations. AM labs AM KUB thank you will follow with recs adv diet ABDOMEN: Liver: Unremarkable. Gallbladder and bile ducts: Cholelithiasis without findings to suggest acute cholecystitis. No ductal dilation. Pancreas: Unremarkable. No ductal dilation. Spleen: Unremarkable. No splenomegaly. Adrenals: Unremarkable. No mass. Kidneys and ureters: Massive prostatomegaly with severely distended urinary bladder and bilateral moderate hydroureteronephrosis could represent obstructive uropathy. Stomach and bowel: Distended fluid-filled large and small bowel loops suggests ileus, no findings to suggest suzi obstruction. Ascending colon diameter 8 cm. No mucosal thickening. PELVIS: Appendix: No findings to suggest acute appendicitis. Bladder: Unremarkable. No stones. Reproductive: Prostate 7 cm transverse. ABDOMEN and PELVIS: Intraperitoneal space: Unremarkable. No free air. No significant fluid collection. Bones/joints: No acute fracture. No dislocation. Soft tissues: Unremarkable. Vasculature: Unremarkable. No abdominal aortic aneurysm. Lymph nodes: Unremarkable. No enlarged lymph nodes. IMPRESSION: 1. Massive prostatomegaly with severely distended urinary bladder and bilateral moderate hydroureteronephrosis could represent obstructive uropathy. 2. Recommend James catheterization. 3. Distended fluid-filled large and small bowel loops suggests ileus, no findings to suggest suzi obstruction. 4. Respiratory motion artifact limits evaluation of the lung bases, patchy ill-defined groundglass or mosaic attenuation of the lungs and dependent atelectasis present. 5. Cholelithiasis without findings to suggest acute cholecystitis. (2) Urinary retention (3) CHUNG (acute kidney injury) (4) Cholecystitis (5) History of diabetes mellitus (6) History of hypertension (7) Hydronephrosis (8) Prostatitis (9) Enlarged prostate (10) Melena (11) Hyponatremia (12) Renal failure (13) SBO (small bowel obstruction) (14) Abdominal pain Low James Jun 17, 2020 14:06
--- NOTE | 2020-06-17 14:13 | Diagnostic Imaging Report ---
Indication: Abdominal pain Technique: Supine view of the abdomen Comparison: 06/14/2020 Findings: Considerable gas is seen within nondilated large and small bowel. Amount of bowel gas is decreased from the previous study. Previously demonstrated nasogastric tube is no longer evident. There is a James catheter in place. No unusual masses or calcifications Impression: No acute process. Considerable gas in nondilated large and small bowel, decreased since prior exam Interim nasogastric tube removal
--- NOTE | 2020-06-17 14:14 | Diagnostic Imaging Report ---
Indication: Shortness of breath Technique: One view of the chest Comparison: none Findings: Lungs and pleural spaces are clear. Heart size is normal. Impression: No acute process
--- NOTE | 2020-06-17 14:58 | NUR ---
CASE MANAGEMENT:REVIEW 06/17/20 SI: SMALL BOWEL OBSTRUCTION 97.9 93 20 151/76 98% ON 2L/NC H/H-13.6/40.9 ESR+24 IS: IV ZOSYN Q8HRS IV PROTONIX Q12 SS INSULIN AC+HS SQ HEPARIN SQ Q12 : TELEMETRY STATUS PLAN: CLEAR LIQUID ABD AND CHEST XRAY BEDSIDE SWALLOW EVAL
--- NOTE | 2020-06-17 15:02 | Diagnostic Imaging Report ---
Indication: Leg pain Technique: Grayscale and duplex images of the bilateral lower extremity veins Comparison: Findings: Bilaterally, grayscale and duplex images demonstrate no evidence of intraluminal thrombus. Normal phasic Doppler waveforms, demonstrating normal augmentation response and no evidence of valvular insufficiency. Greater saphenous vein(s) and tibial veins are patent. Normal compressibility. Impression: Negative for evidence of lower extremity deep venous thrombosis bilaterally
--- NOTE | 2020-06-17 16:26 | NUR ---
ST BEDSIDE SWALLOW EVALUATION: ST ORDERS RECEIVED FROM DR. HANDLEY FOR BEDSIDE SWALLOW EVALUATION. DYSPHAGIA RISK FACTORS FOR THIS 70 Y.O. [place] SPEAKING MALE: ACUTE: Obstructive Uropathy, Prostate enlargement, small-bowel ileus, bilateral hydronephrosis, probable UTI, Afebrile, Leukocytosis, Gastric distention cholelithiasis, Renal failure, CHUNG. H/O: DM2, HTN, Hypercholesterolemia, BPH, PLOF: Patient reports no history of swallowing difficulties, previously consumed regular solids with thin liquids. PER RN: Patient previously on full liquids diet due to GI. MD wanting to initiate a solid diet, however, RN unsure appropriate texture therefore ST referral made. VITALS ON 2L NASAL CANNULA: HR: 93.; RR: 20; SP02: 98% RELEVANT MEDS: Protonix (GERD). Zofran (Nausea). Restoril (Insomnia). Patient seen at bedside, is alert and speaking in Mongolian. Patients oral motor ROM and coordination is slightly imprecise albeit functional. Patient is able to appropriately express wants and needs. Patients VSS for duration of the session, agreeable to PO trials with ST. Patient is pleasant for duration of the session. INITIAL IMPRESSIONS: Appears to have a grossly functional swallow with WFL oral preparation and transit times to BOT, Patient was noted to have trace oral residuals s/p swallow which Patient cleared with second swallow and liquid rinse, laryngeal elevation present upon palpation appears fair to good. No overt s/s of aspiration with thin liquids, puree solids, or soft solids. Given PO trials of thin liquids, Patient able to complete 3 oz Jada swallow protocol without breaks or overt s/s of aspiration. Given Puree Solids, adequate bolus formation and control, no oral residuals, no overt s/s of aspiration. Given Solid cracker, slightly prolonged rotary mastication, mild oral residuals remaining in oral cavity which Patient require liquid rinse to clear, no overt s/s of aspiration. RECOMMENDATIONS 1. Soft Easy Chew with Thin Liquids, please assist Patient with tray set up. 2. OVEN LABORER to f/u 1-2x for diet tolerance and for dysphagia tx/management. 3. Please assist Patient with oral care BID. OVEN LABORER made RN aware of results and recommendations, will follow up for diet tolerance and dysphagia tx/management. Thank you for this referral! OVEN LABORER [phone]
--- NOTE | 2020-06-17 19:28 | NUR ---
NURSE NOTES: Received hand-off report from NETO Mir. Skin is intact, no changes in LOC noted, vital signs stable, alert and oriented x3. Patient in stable condition.
--- NOTE | 2020-06-17 19:30 | NUR ---
HAND-OFF: Report given to NETO Mueller. Pt is awake and stable, no stress noted, endorsed plan of care.
--- NOTE | 2020-06-17 19:58 | NUR ---
HAND-OFF: Report given to NETO Lozano. Patient transferred from 211-1 to 309-1 safely, with no incidents. Patient in stable condition. BP at 19:30 was 155/67. youth nutritional monitor removed, IV sites intact, chart given to Blake, patient belongings all accounted for in front of patient and NETO Lozano. Plan of care endorsed.
[2020-06-17] MEDS ORDERED: Nitroglycerin Subl 0.4mg tab SL PRN (20:00)
[2020-06-17] MEDS ORDERED: Miralax 17gm pkt ORAL PRN (20:30)
--- NOTE | 2020-06-17 20:30 | NUR ---
NURSE NOTES: Patient received from NETO Mullen. Patient in stable condition. BP elevated, messaged Dr. Negro PRJorge Alberto blood pressure medication. Received order for Hydralazine PO PRN. Patient does not show any signs of pain, or discomfort. [place] speaking only. Belongings brought with the patient.
[2020-06-17] MEDS: HydrALAZINE 50mg tab ORAL PRN (21:38)
[2020-06-18] VITALS: BP 162/79
[2020-06-18 03:00] VITALS: BP 161/83
[2020-06-18] MEDS: HydrALAZINE 50mg tab ORAL PRN (03:46)
[2020-06-18 04:00] VITALS: BP 124/64
[2020-06-18] MEDS: Piperacillin/Tazobactam 3.375 GM in NS 110 ML IVPB SCH ×2 (05:15→13:39)
[2020-06-18 05:49] LABS: BASOPHILS % (AUTO) 1.3 % (0.0-2.0); EOSINOPHILS % (AUTO) 5.1 % (0.0-3.0); HEMATOCRIT 43.5 % (42.0-52.0); HEMOGLOBIN 14.3 G/DL (14.2-18.0); MEAN CORPUSCULAR VOLUME 87 FL (80-99); MONOCYTES % (AUTO) 10.6 % (1.0-10.0); NEUTROPHILS % (AUTO) 60.1 % (45.0-75.0); PLATELET COUNT 317 K/UL (150-450); RED BLOOD COUNT 5.02 M/UL (4.70-6.10); RED CELL DISTRIBUTION WIDTH 12.7 % (11.6-14.8); WHITE BLOOD COUNT 8.8 K/UL (4.8-10.8)
[2020-06-18] MEDS: NovoLOG Insulin Flexpen SUBQ SCH ×2 (05:50→11:30)
[2020-06-18 06:21] LABS: ANION GAP 3 mmol/L (5-15); BLOOD UREA NITROGEN 7 mg/dL (7-18); CALCIUM 9.1 MG/DL (8.5-10.1); CARBON DIOXIDE 31 MMOL/L (21-32); CHLORIDE 104 MMOL/L (98-107); CREATININE 0.9 MG/DL (0.55-1.30); POTASSIUM 3.5 MMOL/L (3.5-5.1); SODIUM 138 MMOL/L (136-145)
--- NOTE | 2020-06-18 07:45 | NUR ---
NURSE NOTES: Received pt from NETO Lozano. Pt is awake and alert on NC 2L, No acute distress noted. Denies pain at thie time. IV intact and patent. .James cath in place is draining clear yellow urine. Bed in low position and locked, call light within reach. will continue to monitor.
[2020-06-18 08:00] VITALS: BP 112/59
--- NOTE | 2020-06-18 08:02 | General Progress Note ---
Assessment/Plan Problem List: (1) Abdominal pain ICD Codes: R10.9 - Unspecified abdominal pain SNOMED: 93314194 (2) SBO (small bowel obstruction) ICD Codes: K56.609 - Unspecified intestinal obstruction, unspecified as to partial versus complete obstruction SNOMED: 587109954 (3) Prostatitis ICD Codes: N41.9 - Inflammatory disease of prostate, unspecified SNOMED: 8813228 (4) Hydronephrosis ICD Codes: N13.30 - Unspecified hydronephrosis SNOMED: 96945094 (5) Urinary retention ICD Codes: R33.9 - Retention of urine, unspecified SNOMED: 724262660 (6) DM (diabetes mellitus) ICD Codes: E11.9 - Type 2 diabetes mellitus without complications SNOMED: 07132775 Assessment/Plan: sbo has resolved tolerating diet stable labs fu surg and urology recs Subjective Allergies: Coded Allergies: No Known Allergies (Unverified , 06/14/20) Objective Last 24 Hour Vital Signs Date Time Temp Pulse Resp B/P (MAP) Pulse Ox O2 Delivery O2 Flow Rate FiO2 06/18/20 07:23 98.0 06/18/20 04:00 98.0 80 20 124/64 (84) 95 06/18/20 03:46 161/83 06/18/20 03:00 98.7 83 20 161/83 (109) 97 06/18/20 00:00 98.8 82 20 162/79 (106) 97 06/17/20 21:38 181/92 06/17/20 21:00 98.8 89 20 169/89 (115) 95 06/17/20 21:00 Nasal Cannula 2.0 06/17/20 20:00 98.8 100 20 177/91 (119) 97 93 06/17/20 16:00 98.6 100 20 149/82 (104) 97 06/17/20 15:58 87 06/17/20 12:00 97.9 93 20 151/76 (101) 98 06/17/20 11:31 86 06/17/20 10:00 161/83 (109) 06/17/20 09:00 Nasal Cannula 2.0 06/17/20 08:46 179/86 Intake and Output 06/17/20 06/18/20 19:00 07:00 Intake Total 2000.0 ml 500 ml Output Total 2450 ml 1900 ml Balance -450.0 ml -1400 ml Intake Oral 1340 ml 500 ml IV Total 660.0 ml Output Urine Total 2450 ml 1900 ml # Bowel Movements 1 1 Laboratory Tests 06/17/20 11:11: POC Whole Blood Glucose 158H 06/17/20 21:32: POC Whole Blood Glucose 174H 06/18/20 05:00: White Blood Count 8.8, Red Blood Count 5.02, Hemoglobin 14.3, Hematocrit 43.5, Mean Corpuscular Volume 87, Mean Corpuscular Hemoglobin 28.5, Mean Corpuscular Hemoglobin Concent 32.9, Red Cell Distribution Width 12.7, Platelet Count 317, Mean Platelet Volume 6.6, Neutrophils (%) (Auto) 60.1, Lymphocytes (%) (Auto) 23.0, Monocytes (%) (Auto) 10.6H, Eosinophils (%) (Auto) 5.1H, Basophils (%) ( Auto) 1.3, Sodium Level 138, Potassium Level 3.5, Chloride Level 104, Carbon Dioxide Level 31, Anion Gap 3L, Blood Urea Nitrogen 7, Creatinine 0.9, Estimat Glomerular Filtration Rate > 60, Glucose Level 123H, Calcium Level 9.1 06/18/20 05:13: POC Whole Blood Glucose 131H Height (Feet): 5 Height (Inches): 6.00 Weight (Pounds): 168 General Appearance: alert EENT: normal ENT inspection Neck: supple Cardiovascular: normal rate Respiratory/Chest: decreased breath sounds Abdomen: soft, hypoactive bowel sounds Extremities: non-tender Jimi Elizalde MD Jun 18, 2020 08:02
[2020-06-18] MEDS: Pantoprazole Inj IVP SCH (08:39)
[2020-06-18] MEDS: Heparin 5000 units/ml inj SUBQ SCH (08:41)
--- NOTE | 2020-06-18 09:42 | Nephrology Progress Note ---
Assessment/Plan Problem List: (1) Urinary retention (2) CHUNG (acute kidney injury) (3) Enlarged prostate (4) Hyponatremia (5) History of diabetes mellitus (6) History of hypertension Assessment Acute renal failure, most likely secondary to urinary outlet obstruction. Unclear if patient has underlying chronic kidney disease. Severe prostatic hypertrophy and BPH Abdominal pain, distention, possible SBO Electrolyte imbalance, hyponatremia Evidence of melena, possible upper GI bleed Possible pneumonia Cholelithiasis Plan June 17: Diet is advanced. Will stop IV fluid. Renal parameters within normal range. Magnesium IV given. Will monitor the electrolytes. Hydration, adjust IV fluid as needed Correct electrolytes Monitor renal parameters and electrolytes Monitor H&H Kidney ultrasound, noted 2D echocardiogram, ejection fraction 60 to 65% Per consultants Per orders Kidney ultrasound impression: Negative for hydronephrosis. Hydronephrosis reported on previous day's abdominal sonogram has resolved, likely as a result of interim bladder decompression Free intraperitoneal fluid, also previously demonstrated Empty bladder with a James catheter. Objective Objective Last 24 Hour Vital Signs Date Time Temp Pulse Resp B/P (MAP) Pulse Ox O2 Delivery O2 Flow Rate FiO2 06/18/20 09:00 Nasal Cannula 2.0 06/18/20 08:00 99.3 72 18 112/59 (76) 96 06/18/20 07:23 98.0 06/18/20 04:00 98.0 80 20 124/64 (84) 95 06/18/20 03:46 161/83 06/18/20 03:00 98.7 83 20 161/83 (109) 97 06/18/20 00:00 98.8 82 20 162/79 (106) 97 06/17/20 21:38 181/92 06/17/20 21:00 98.8 89 20 169/89 (115) 95 06/17/20 21:00 Nasal Cannula 2.0 06/17/20 20:00 98.8 100 20 177/91 (119) 97 93 06/17/20 16:00 98.6 100 20 149/82 (104) 97 06/17/20 15:58 87 06/17/20 12:00 97.9 93 20 151/76 (101) 98 06/17/20 11:31 86 06/17/20 10:00 161/83 (109) Intake and Output 06/17/20 06/18/20 19:00 07:00 Intake Total 2000.0 ml 500 ml Output Total 2450 ml 1900 ml Balance -450.0 ml -1400 ml Intake Oral 1340 ml 500 ml IV Total 660.0 ml Output Urine Total 2450 ml 1900 ml # Bowel Movements 1 1 Laboratory Tests 06/17/20 11:11: POC Whole Blood Glucose 158H 06/17/20 21:32: POC Whole Blood Glucose 174H 06/18/20 05:00: White Blood Count 8.8, Red Blood Count 5.02, Hemoglobin 14.3, Hematocrit 43.5, Mean Corpuscular Volume 87, Mean Corpuscular Hemoglobin 28.5, Mean Corpuscular Hemoglobin Concent 32.9, Red Cell Distribution Width 12.7, Platelet Count 317, Mean Platelet Volume 6.6, Neutrophils (%) (Auto) 60.1, Lymphocytes (%) (Auto) 23.0, Monocytes (%) (Auto) 10.6H, Eosinophils (%) (Auto) 5.1H, Basophils (%) ( Auto) 1.3, Sodium Level 138, Potassium Level 3.5, Chloride Level 104, Carbon Dioxide Level 31, Anion Gap 3L, Blood Urea Nitrogen 7, Creatinine 0.9, Estimat Glomerular Filtration Rate > 60, Glucose Level 123H, Calcium Level 9.1 06/18/20 05:13: POC Whole Blood Glucose 131H Height (Feet): 5 Height (Inches): 6.00 Weight (Pounds): 168 Seth Goddard MD Jun 18, 2020 09:42
[2020-06-18 12:00] VITALS: BP 151/89
--- NOTE | 2020-06-18 12:14 | Surgery Progress Note ---
Surgery Progress Note Subjective Symptoms: improved, pain absent, tolerating diet, voiding well, passing flatus Objective Last 24 Hour Vital Signs Date Time Temp Pulse Resp B/P (MAP) Pulse Ox O2 Delivery O2 Flow Rate FiO2 06/18/20 09:00 Nasal Cannula 2.0 06/18/20 08:00 99.3 72 18 112/59 (76) 96 06/18/20 07:23 98.0 06/18/20 04:00 98.0 80 20 124/64 (84) 95 06/18/20 03:46 161/83 06/18/20 03:00 98.7 83 20 161/83 (109) 97 06/18/20 00:00 98.8 82 20 162/79 (106) 97 06/17/20 21:38 181/92 06/17/20 21:00 98.8 89 20 169/89 (115) 95 06/17/20 21:00 Nasal Cannula 2.0 06/17/20 20:00 98.8 100 20 177/91 (119) 97 93 06/17/20 16:00 98.6 100 20 149/82 (104) 97 06/17/20 15:58 87 I&O Intake and Output 06/17/20 06/18/20 19:00 07:00 Intake Total 2000.0 ml 500 ml Output Total 2450 ml 1900 ml Balance -450.0 ml -1400 ml Intake Oral 1340 ml 500 ml IV Total 660.0 ml Output Urine Total 2450 ml 1900 ml # Bowel Movements 1 1 Cardiovascular: RSR Respiratory: clear Abdomen: soft, non-tender, present bowel sounds Extremities: no edema, no tenderness, no cyanosis Laboratory Tests Test 06/17/20 16:41 06/17/20 21:32 06/18/20 05:00 06/18/20 05:13 POC Whole Blood Glucose 139 MG/DL (74-106) H 174 MG/DL (74-106) H 131 MG/DL (74-106) H White Blood Count 8.8 K/UL (4.8-10.8) Red Blood Count 5.02 M/UL (4.70-6.10) Hemoglobin 14.3 G/DL (14.2-18.0) Hematocrit 43.5 % (42.0-52.0) Mean Corpuscular Volume 87 FL (80-99) Mean Corpuscular Hemoglobin 28.5 PG (27.0-31.0) Mean Corpuscular Hemoglobin Concent 32.9 G/DL (32.0-36.0) Red Cell Distribution Width 12.7 % (11.6-14.8) Platelet Count 317 K/UL (150-450) Mean Platelet Volume 6.6 FL (6.5-10.1) Neutrophils (%) (Auto) 60.1 % (45.0-75.0) Lymphocytes (%) (Auto) 23.0 % (20.0-45.0) Monocytes (%) (Auto) 10.6 % (1.0-10.0) H Eosinophils (%) (Auto) 5.1 % (0.0-3.0) H Basophils (%) (Auto) 1.3 % (0.0-2.0) Sodium Level 138 MMOL/L (136-145) Potassium Level 3.5 MMOL/L (3.5-5.1) Chloride Level 104 MMOL/L (98-107) Carbon Dioxide Level 31 MMOL/L (21-32) Anion Gap 3 mmol/L (5-15) L Blood Urea Nitrogen 7 mg/dL (7-18) Creatinine 0.9 MG/DL (0.55-1.30) Estimat Glomerular Filtration Rate > 60 mL/min (>60) Glucose Level 123 MG/DL (74-106) H Calcium Level 9.1 MG/DL (8.5-10.1) Test 06/18/20 11:43 POC Whole Blood Glucose 146 MG/DL (74-106) H Plan Problems: (1) Intractable abdominal pain Assessment & Plan: 70-year-old male with abdominal pain distention. CT noted as below. Currently no nausea vomiting fever chills. States he feels better. NG tube was placed minimal output since. Labs noted improved. No acute surgical intervention planned at this time. Likely ileus which is now resolving. NG tube has been discontinued patient events are with oral diet. Will monitor with serial abdominal examinations. AM labs AM KUB thank you will follow with recs adv diet ABDOMEN: Liver: Unremarkable. Gallbladder and bile ducts: Cholelithiasis without findings to suggest acute cholecystitis. No ductal dilation. Pancreas: Unremarkable. No ductal dilation. Spleen: Unremarkable. No splenomegaly. Adrenals: Unremarkable. No mass. Kidneys and ureters: Massive prostatomegaly with severely distended urinary bladder and bilateral moderate hydroureteronephrosis could represent obstructive uropathy. Stomach and bowel: Distended fluid-filled large and small bowel loops suggests ileus, no findings to suggest suzi obstruction. Ascending colon diameter 8 cm. No mucosal thickening. PELVIS: Appendix: No findings to suggest acute appendicitis. Bladder: Unremarkable. No stones. Reproductive: Prostate 7 cm transverse. ABDOMEN and PELVIS: Intraperitoneal space: Unremarkable. No free air. No significant fluid collection. Bones/joints: No acute fracture. No dislocation. Soft tissues: Unremarkable. Vasculature: Unremarkable. No abdominal aortic aneurysm. Lymph nodes: Unremarkable. No enlarged lymph nodes. IMPRESSION: 1. Massive prostatomegaly with severely distended urinary bladder and bilateral moderate hydroureteronephrosis could represent obstructive uropathy. 2. Recommend James catheterization. 3. Distended fluid-filled large and small bowel loops suggests ileus, no findings to suggest suzi obstruction. 4. Respiratory motion artifact limits evaluation of the lung bases, patchy ill-defined groundglass or mosaic attenuation of the lungs and dependent atelectasis present. 5. Cholelithiasis without findings to suggest acute cholecystitis. (2) Urinary retention (3) CHUNG (acute kidney injury) (4) Cholecystitis (5) History of diabetes mellitus (6) History of hypertension (7) Hydronephrosis (8) Prostatitis (9) Enlarged prostate (10) Melena (11) Hyponatremia (12) Renal failure (13) SBO (small bowel obstruction) (14) Abdominal pain Low James Jun 18, 2020 12:14
--- NOTE | 2020-06-18 13:15 | Internal Med Progress Note ---
Subjective Date of Service: Jun 18, 2020 Physician Name Brodie Lutz Attending Physician Serge Negro MD Current Medications Medications (Trade) Dose Ordered Sig/Chaim Route PRN Reason Start Time Stop Time Status Last Admin Dose Admin Acetaminophen (Tylenol) 650 mg Q4H PRN ORAL Mild Pain (1-3) or Headache 06/17/20 20:00 07/16/20 19:59 06/18/20 06:53 Acetaminophen (Tylenol) 650 mg Q4H PRN ORAL fever (T>100.5F) 06/17/20 20:30 07/14/20 20:29 Dextrose (Dextrose 50%) 25 ml Q30M PRN IV Hypoglycemia 06/17/20 20:00 09/12/20 20:29 Dextrose (Dextrose 50%) 50 ml Q30M PRN IV Hypoglycemia 06/17/20 20:00 09/12/20 20:29 Diphenhydramine HCl (Benadryl) 25 mg Q6H PRN ORAL Itching/Pruritis 06/17/20 20:30 07/14/20 20:29 Heparin Sodium (Porcine) (Heparin 5000 units/ml) 5,000 units EVERY 12 HOURS SUBQ 06/17/20 21:00 07/29/20 20:59 06/18/20 08:41 Hydralazine HCl (Apresoline) 50 mg Q6HR PRN ORAL For High Blood Pressure 06/17/20 21:30 09/15/20 21:29 06/18/20 03:46 Insulin Aspart (NovoLOG) BEFORE MEALS AND HS SUBQ 06/17/20 21:00 09/12/20 21:59 06/17/20 21:50 Nitroglycerin (Ntg) 0.4 mg Q5M X 3 DOSES PRN SL Prn Chest Pain 06/17/20 20:00 07/14/20 20:29 Ondansetron HCl (Zofran) 4 mg Q6H PRN IVP Nausea & Vomiting 06/17/20 22:30 07/14/20 22:29 06/17/20 21:42 Pantoprazole (Protonix) 40 mg EVERY 12 HOURS IVP 06/17/20 21:00 07/15/20 11:59 06/18/20 08:39 Piperacillin Sod/ Tazobactam Sod 3.375 gm/Sodium Chloride 110 ml @ 27.5 mls/hr EVERY 8 HOURS IVPB 06/17/20 22:00 06/22/20 21:59 06/18/20 05:15 Polyethylene Glycol (Miralax) 17 gm HSPRN PRN ORAL Constipation 06/17/20 20:30 07/14/20 20:29 Temazepam (Restoril) 15 mg HSPRN PRN ORAL Insomnia 06/17/20 20:30 06/21/20 20:29 06/17/20 22:22 Allergies: Coded Allergies: No Known Allergies (Unverified , 06/14/20) ROS Limited/Unobtainable: No Constitutional: Reports: no symptoms HEENT: Reports: no symptoms Cardiovascular: Reports: no symptoms Respiratory: Reports: no symptoms Gastrointestinal/Abdominal: Reports: no symptoms Genitourinary: Reports: no symptoms Neurologic/Psychiatric: Reports: no symptoms Subjective 70 YO M admitted with abdominal distention. Now ileus, obstructive uropathy and renal failure. Cover for Int Ayden-Dr Negro Objective Last Vital Signs Date Time Temp Pulse Resp B/P (MAP) Pulse Ox O2 Delivery O2 Flow Rate FiO2 06/18/20 12:00 98.9 89 18 151/89 (109) 97 06/18/20 09:00 Nasal Cannula 2.0 Laboratory Tests Test 06/17/20 16:41 06/17/20 21:32 06/18/20 05:00 06/18/20 05:13 POC Whole Blood Glucose 139 MG/DL (74-106) H 174 MG/DL (74-106) H 131 MG/DL (74-106) H White Blood Count 8.8 K/UL (4.8-10.8) Red Blood Count 5.02 M/UL (4.70-6.10) Hemoglobin 14.3 G/DL (14.2-18.0) Hematocrit 43.5 % (42.0-52.0) Mean Corpuscular Volume 87 FL (80-99) Mean Corpuscular Hemoglobin 28.5 PG (27.0-31.0) Mean Corpuscular Hemoglobin Concent 32.9 G/DL (32.0-36.0) Red Cell Distribution Width 12.7 % (11.6-14.8) Platelet Count 317 K/UL (150-450) Mean Platelet Volume 6.6 FL (6.5-10.1) Neutrophils (%) (Auto) 60.1 % (45.0-75.0) Lymphocytes (%) (Auto) 23.0 % (20.0-45.0) Monocytes (%) (Auto) 10.6 % (1.0-10.0) H Eosinophils (%) (Auto) 5.1 % (0.0-3.0) H Basophils (%) (Auto) 1.3 % (0.0-2.0) Sodium Level 138 MMOL/L (136-145) Potassium Level 3.5 MMOL/L (3.5-5.1) Chloride Level 104 MMOL/L (98-107) Carbon Dioxide Level 31 MMOL/L (21-32) Anion Gap 3 mmol/L (5-15) L Blood Urea Nitrogen 7 mg/dL (7-18) Creatinine 0.9 MG/DL (0.55-1.30) Estimat Glomerular Filtration Rate > 60 mL/min (>60) Glucose Level 123 MG/DL (74-106) H Calcium Level 9.1 MG/DL (8.5-10.1) Test 06/18/20 11:43 POC Whole Blood Glucose 146 MG/DL (74-106) H Microbiology Date/Time Source Procedure Growth Status 06/15/20 15:00 Stool Clostridium difficile Toxin Assay - Final Complete Intake and Output 06/17/20 06/18/20 19:00 07:00 Intake Total 2000.0 ml 500 ml Output Total 2450 ml 1900 ml Balance -450.0 ml -1400 ml Intake Oral 1340 ml 500 ml IV Total 660.0 ml Output Urine Total 2450 ml 1900 ml # Bowel Movements 1 1 Objective PHYSICAL EXAMINATION: GENERAL: The patient is a well-developed, well-nourished, male, in no apparent distress. HEENT: Eyes, pupils equal and responsive to light and accommodation. Extraocular movements are intact. NECK: Supple without lymphadenopathy. CHEST: Lungs are clear to auscultation bilaterally without wheezes or rales. CARDIOVASCULAR: Regular rhythm and rate. S1, S2 are normal without murmurs, rubs, or gallops. ABDOMEN: Soft, distended with decreased bowel sounds. No evidence of hepatosplenomegaly. Currently, no rebound or guarding noted. EXTREMITIES: Negative for clubbing, cyanosis, or edema. RECTAL: Not performed. GENITAL: Not performed. NEUROLOGICAL: Cranial nerves II through XII grossly intact without focal deficits. Motor strength is 5/5 throughout. Deep tendon reflexes are 2+, plantar. Assessment/Plan Assessment/Plan ASSESSMENT: This is a 70-year-old male with: 1. Obstructive uropathy. 2. Prostate enlargement. 3. Small-bowel ileus-resolved 4. Bilateral hydronephrosis. 5. Diabetes type 2. 6. Hypertension. 7. Hypercholesterolemia. TREATMENT: 1. Small-bowel ileus. A Gastroenterology consultation has been obtained with Dr. Jimi Elizalde. Surgery=Dr. James. We will follow recommendations of Gastroenterology and surgery. Tolerating clear liquid diet 2. Obstructive uropathy/enlarged prostate. A Nephrology consultation has been obtained with Dr. Seth Goddard. Urology consultation = Dr Thurman. The patient currently has a urinary catheter in place. 3. Bilateral hydronephrosis, probably secondary to obstructive uropathy secondary to prostatic enlargement. 4. Diabetes type 2. NovoLog sliding scale has been instituted. 5. Hypertension. Continue Norvasc as above. 6. Hypercholesterolemia. Continue atorvastatin as above. 7. Discharge planning: [facility] board and care Brodie Lutz MD Jun 18, 2020 13:15
--- NOTE | 2020-06-18 13:39 | Nephrology Progress Note ---
Assessment/Plan Problem List: (1) Urinary retention (2) CHUNG (acute kidney injury) (3) Enlarged prostate (4) Hyponatremia (5) History of diabetes mellitus (6) History of hypertension Assessment Acute renal failure, most likely secondary to urinary outlet obstruction. Unclear if patient has underlying chronic kidney disease. Severe prostatic hypertrophy and BPH Abdominal pain, distention, possible SBO Electrolyte imbalance, hyponatremia Evidence of melena, possible upper GI bleed Possible pneumonia Cholelithiasis Plan June 18: Tolerating p.o. Adjust blood pressure medication. Start Flomax. June 17: Diet is advanced. Will stop IV fluid. Renal parameters within normal range. Magnesium IV given. Will monitor the electrolytes. Hydration, adjust IV fluid as needed Correct electrolytes Monitor renal parameters and electrolytes Monitor H&H Kidney ultrasound, noted 2D echocardiogram, ejection fraction 60 to 65% Per consultants Per orders Kidney ultrasound impression: Negative for hydronephrosis. Hydronephrosis reported on previous day's abdominal sonogram has resolved, likely as a result of interim bladder decompression Free intraperitoneal fluid, also previously demonstrated Empty bladder with a James catheter. Subjective ROS Limited/Unobtainable: No Objective Objective Last 24 Hour Vital Signs Date Time Temp Pulse Resp B/P (MAP) Pulse Ox O2 Delivery O2 Flow Rate FiO2 06/18/20 12:00 98.9 89 18 151/89 (109) 97 06/18/20 09:00 Nasal Cannula 2.0 06/18/20 08:00 99.3 72 18 112/59 (76) 96 06/18/20 07:23 98.0 06/18/20 04:00 98.0 80 20 124/64 (84) 95 06/18/20 03:46 161/83 06/18/20 03:00 98.7 83 20 161/83 (109) 97 06/18/20 00:00 98.8 82 20 162/79 (106) 97 06/17/20 21:38 181/92 06/17/20 21:00 98.8 89 20 169/89 (115) 95 06/17/20 21:00 Nasal Cannula 2.0 06/17/20 20:00 98.8 100 20 177/91 (119) 97 93 06/17/20 16:00 98.6 100 20 149/82 (104) 97 06/17/20 15:58 87 Intake and Output 06/17/20 06/18/20 19:00 07:00 Intake Total 2000.0 ml 500 ml Output Total 2450 ml 1900 ml Balance -450.0 ml -1400 ml Intake Oral 1340 ml 500 ml IV Total 660.0 ml Output Urine Total 2450 ml 1900 ml # Bowel Movements 1 1 Laboratory Tests 06/17/20 16:41: POC Whole Blood Glucose 139H 06/17/20 21:32: POC Whole Blood Glucose 174H 06/18/20 05:00: White Blood Count 8.8, Red Blood Count 5.02, Hemoglobin 14.3, Hematocrit 43.5, Mean Corpuscular Volume 87, Mean Corpuscular Hemoglobin 28.5, Mean Corpuscular Hemoglobin Concent 32.9, Red Cell Distribution Width 12.7, Platelet Count 317, Mean Platelet Volume 6.6, Neutrophils (%) (Auto) 60.1, Lymphocytes (%) (Auto) 23.0, Monocytes (%) (Auto) 10.6H, Eosinophils (%) (Auto) 5.1H, Basophils (%) ( Auto) 1.3, Sodium Level 138, Potassium Level 3.5, Chloride Level 104, Carbon Dioxide Level 31, Anion Gap 3L, Blood Urea Nitrogen 7, Creatinine 0.9, Estimat Glomerular Filtration Rate > 60, Glucose Level 123H, Calcium Level 9.1 06/18/20 05:13: POC Whole Blood Glucose 131H 06/18/20 11:43: POC Whole Blood Glucose 146H Height (Feet): 5 Height (Inches): 6.00 Weight (Pounds): 168 General Appearance: no apparent distress Cardiovascular: normal rate Respiratory/Chest: decreased breath sounds Abdomen: soft, distended Seth Goddard MD Jun 18, 2020 13:39
[2020-06-18] MEDS ORDERED: Tamsulosin 0.4mg cap ORAL SCH (13:45)
--- NOTE | 2020-06-18 14:49 | NUR ---
*-*DISCHARGE PLANNED*-* PATIENT HAS BEEN ACCEPTED AND WILL BE DISCHARGED TO: [facility] P: [phone] FOR NURSE TO NURSE REPORT ADDRESS: [facility] [address] [place], [place] [address]LINE AMBULANCE TRANSPORTATION SET FOR 4PM S/W GOLDIE [id number] S/W MARTHA, ON PATIENTS CONTACT INFORMATION, MARTHA IS IN AGREEMENT WITH DISCHARGE PLAN.
--- NOTE | 2020-06-18 15:02 | NUR ---
NURSE NOTES: Spoke to regarding James catheter and discharge patient with James and follow up with after discharge. Order noted and carried out.
[2020-06-18 16:00] VITALS: BP 143/88
--- NOTE | 2020-06-18 16:20 | NUR ---
NURSE NOTES: Pt in stable condition. Spoke to Diego from [facility] and care for report. IV removed. All belongings were accounted for. Discharged packet and report given to ambulance personnel. Pt discharge with lashawn sabillon per Dr. Thurman. Pt picked up by ambulance via [facility].
--- NOTE | 2020-06-20 12:10 | Discharge Summary ---
Discharge Summary Discharge Summary _ DATE OF ADMISSION: 06/14/2020 DATE OF DISCHARGE: 06/18/2020 DISCHARGED BY: Dr. Negro REASON FOR ADMISSION: 70 years old male with past medical history of diabetes mellitus, hypertension, presented from [facility] due to complaint of abdominal distention, dark stool with associated nausea as well as cough. He denied fever chills vomiting. No chest pain or shortness of breath. Upon evaluation blood pressure was elevated 171/95. Patient was afebrile. Pulse oximetry was stable on room air. Bedside ultrasound revealed no evidence of acute findings. CT scan of the abdomen and pelvis revealed massive prostatomegaly with severely distended urinary bladder and bilateral moderate hydroureteronephrosis which could represent obstructive uropathy. Distended fluid-filled large and small bowel loops suggesting ileus no findings to suggest suzi obstruction. Patchy ill-defined groundglass versus masslike attenuation of the lungs with dependent atelectasis. Cholelithiasis without findings to suggest acute cholecystitis. Laboratory work-up revealed leukocytosis WBC 12.4 stable hemoglobin hematocrit and platelet count. Sodium 129, potassium 3.1. BUN 70, creatinine 4.9. Glucose 190. Stable LFT and lipase. Troponin negative total CK 299 proBNP 253 urinalysis revealed pyuria and few bacteria. Patient subsequently admitted with renal failure hyponatremia hydronephrosis possible pneumonia prostatitis enlarged prostate issues possible small bowel obstruction and abdominal pain CONSULTANTS: pulmonary/critical care Dr. Penaloza ID specialist Dr. Arboleda GI specialist Dr. Elizalde Urologist Dr. Thurman anesthesiology tech Dr. Goddard surgery Dr. James HOSPITAL COURSE: [] Patient admitted and initially was kept n.p.o. on the IV fluids. Patient started on empiric antibiotic as per ID specialist recommendation. Renal parameters electrolytes were closely monitored electrolytes corrected as needed nephrotoxins were avoided renal ultrasound revealed no evidence of hydronephrosis. Hydronephrosis reported on previous stable discharge sodium 138 , potassium 3.5. Acute renal failure was most likely secondary to urinary outlet obstruction and resolved with James catheter. It was unclear if patient had underlying chronic kidney disease. Pain management was addressed. Supportive care provided. Was resolved and likely was as a result of interim bladder decompression after James catheter was prepped replaced. Acute renal failure resolved prior to discharge BUN 7, creatinine 0.9. Electrolytes corrected sodium 138, potassium 3.5. Supplemental oxygen provided and titrated to keep pulse oximetry above 92%. Venous duplex bilateral lower extremity revealed no evidence of acute DVT. DVT prophylaxis provided Pulsoxymeter was stable on 2 L of oxygen via nasal cannula. Rapid COVID-19 done in the emergency room was negative. Urine culture revealed gram-negative rods with colony count less than 10K and stool for C. difficile was negative. Patient was on empiric antibiotic for probable UTI and possible pneumonia. Aspiration precaution maintained. Follow-up chest x-ray revealed no acute process. Surgeon and GI closely followed. Patient initially kept n.p.o. patient probably had ileus there was no evidence of bowel obstruction. Patient initially had NG tube for bowel decompression which was discontinued and patient started on clear liquid diet which was advanced as tolerated. Patient was able to tolerate diet. Bowel regimen instituted. GI prophylaxis provided. Antiemetic were on board as needed. Pain management was addressed as needed. Patient had serial abdominal examination with KUB ileus resolved patient started on diet Urology seen patient for obstructive uropathy. Urologist recommended keep James catheter and DC and a James catheter and suppressive antibiotic. Patient will need to have a prostate surgery. Asymptomatic. Flomax continued DVT and GI prophylaxis continued Patient clinically stabilized and was ready for discharge to [facility] facility for continuation of care. Patient will need to follow-up with urologist as scheduled surgery FINAL DIAGNOSES: Acute renal failure most likely secondary to urinary outlet obstruction- resolved Possible underlying chronic kidney disease Obstructive uropathy Probable UTI Possible pneumonia Severe prostatomegaly Abdominal pain and distention Ileus - resolved Electrolyte imbalance Melena, possible upper GI bleeding Diabetis mellitus Hydronephrosis DISCHARGE MEDICATIONS: See Medication Reconciliation list. DISCHARGE INSTRUCTIONS: Patient was discharged to the [facility] facility. Follow up with medical doctor at the facility. I have been assigned to dictate discharge summary for this account. I was not involved in the patient's management. Kezia Ramos NP Jun 20, 2020 12:10
== END 2020-06-18 16:30 | DRG 725 ==
LOC: EDBD 17:29 → EMR 17:45 → 2E 19:08 → EDBEDREQSVC 19:50 → EDBEDREQ 20:17 → 3E 06-17 20:14
DX: N40.1 Benign prostatic hyperplasia with lower urinary tract symptoms (principal); J18.9 Pneumonia, unspecified organism; N13.8 Other obstructive and reflux uropathy; K56.609 Unspecified intestinal obstruction, unspecified as to partial versus complete obstruction; E87.1 Hypo-osmolality and hyponatremia; N17.9 Acute kidney failure, unspecified; K92.2 Gastrointestinal hemorrhage, unspecified; N39.0 Urinary tract infection, site not specified; N13.39 Other hydronephrosis; K56.7 Ileus, unspecified; E11.9 Type 2 diabetes mellitus without complications; N18.9 Chronic kidney disease, unspecified; Z79.84 Long term (current) use of oral hypoglycemic drugs; Z79.82 Long term (current) use of aspirin; K80.20 Calculus of gallbladder without cholecystitis without obstruction
CPT/HCPCS: 36415; 71045; 74018; 74176; 76700; 76770; 80048; 80053; 80061; 81003; 82043; 82140; 82150; 82270; 82550; 82607; 82728; 82746; 82962; 82977; 83036; 83540; 83550; 83615; 83690; 83735; 83880; 83935; 84100; 84300; 84443; 84484; 84550; 85025; 85610; 85651; 85730; 86140; 86850; 86900; 86901; 87081; 87086; 87324; 89050; 93005; 93306; 93970; 96365; 96375; 99285; J1815; J2405; J7030; U0002

== ENCOUNTER 2020-11-15 22:04 | Emergency (ER) | payer MEDICARE, OTHER ==
[~2020-11-15] VITALS: Ht 170.2 cm; Wt 81.6 kg
[~2020-11-15 22:04] MED LIST: AMLODIPINE BESYL5 MG ORAL; ASPIRIN81 M3 PO; ATIVAN0.5 MG ORAL; ATROPINE SULFAT15 ML OP; BENADRYL A12.5 MG/5 ORAL; BENAZEPRIL HCL10 MG ORAL; DESYREL50 MG PO; DOCUSATE SODIU100 MG ORAL; FAMOTIDINE40 MG/5 ML PO; FINASTERIDE5 MG ORAL; FLOMAX0.4 MG ORAL; GABAPENTIN100 MG ORAL; HYDRALAZINE HCL25 M1 ORAL; LOSARTAN POTAS100 MG ORAL; METFORMIN500 MG/5 M PO; MONTELUKAST SOD10 MG ORAL; MORPHINE IR15 MG ORAL; MULTIVITAMINS1 EAC2 ORAL; NAPROXEN250 M1 PO; SIMVASTATIN20 MG ORAL; ZOFRAN4 M1 ORAL
--- NOTE | 2020-11-15 22:30 | NUR ---
ED Nurse Note: Patient walked into the ED from home with c/o urinary retention onset today. Pt c/o distention and suprapelvic pressure. Patient has hx of BPH and is med compliant. Patient denies trauma/ injury, fever/ chills, N/V/D. PAtient is AAOX4 and ambulatory
--- NOTE | 2020-11-15 22:31 | NUR ---
ED Nurse Note: ERMD at bedside
--- NOTE | 2020-11-15 22:44 | Emergency Room Report ---
History of Present Illness General Chief Complaint: Male Urogenital Problems Source: Patient Present Illness HPI Disclaimer: Please note that this report is being documented using DRAGON technology. This can lead to erroneous entry secondary to incorrect interpretation by the dictating instrument. HPI: 70-year-old male history of BPH presents for evaluation of urinary retention. Prior history of BPH and is on finasteride and tamsulosin. Unable to urinate today. Reports suprapelvic pressure and distention. He was seen at [facility] 4 days ago for diarrhea and started on ciprofloxacin. Denies fever chills or vomiting. He previously required discharge with James catheter for persistent retention was supposed to follow-up with urology for surgery but did not yet. PMH: BPH, urinary retention, anxiety, diabetes, hypertension PSH: Reviewed Allergies: Reviewed Social Hx: Reviewed Allergies: Coded Allergies: No Known Allergies (Unverified , 06/14/20) COVID-19 Screening Contact w/high risk pt: No Recent Travel to affected area: No Experienced COVID-19 symptoms?: No COVID-19 Testing performed NIGHT PATROL INSPECTOR: No Nursing Documentation-PMH Past Medical History: No History, Except For Hx Cardiac Problems: No Hx Hypertension: Yes Hx Diabetes: Yes Hx Gastrointestinal Problems: No Hx Neurological Problems: No Review of Systems All Other Systems: negative except mentioned in HPI Physical Exam Vital Signs Date Time Temp Pulse Resp B/P (MAP) Pulse Ox O2 Delivery O2 Flow Rate FiO2 11/15/20 22:20 97.5 131 18 117/77 (90) 97 Room Air General: Awake and alert, appears uncomfortable HEENT: NC/AT. EOMI. Resp: Normal work of breathing Abdomen: Moderate tenderness in the lower pelvis with abdominal distention. Skin: Intact. No abrasions, laceration or rash over the exposed skin MSK: Normal tone and bulk. Moving all extremities. No obvious deformity. Neuro: Awake and alert. Mentating appropriately Medical Decision Making Diagnostic Impression: Primary Impression: Urinary retention ER Course Is a 70-year-old male history of BPH presents for evaluation ability urinate 1 day. James catheter placed and affected probably 800 cc clear yellow urine. Feeling much better after decompression of bladder. Abdomen now soft and nontender. No evidence of urinary tract infection on urinalysis. Will continue ciprofloxacin from his prior visit. Stable for outpatient follow-up. Discussed with his PMD Dr. Negro, who will arrange for urology evaluation. Laboratory Tests Test 11/15/20 22:40 Urine Color Pale yellow Urine Appearance Clear Urine pH 7 (4.5-8.0) Urine Specific [place] 1.010 (1.005-1.035) Urine Protein 1+ (NEGATIVE) H Urine Glucose (UA) Negative (NEGATIVE) Urine Ketones Negative (NEGATIVE) Urine Blood 2+ (NEGATIVE) H Urine Nitrite Negative (NEGATIVE) Urine Bilirubin Negative (NEGATIVE) Urine Urobilinogen Normal MG/DL (0.0-1.0) Urine Leukocyte Esterase 1+ (NEGATIVE) H Urine RBC 0-2 /HPF (0 - 0) H Urine WBC 0-2 /HPF (0 - 0) Urine Squamous Epithelial Cells None /LPF (NONE/OCC) Urine Bacteria None /HPF (NONE) Last Vital Signs Date Time Temp Pulse Resp B/P (MAP) Pulse Ox O2 Delivery O2 Flow Rate FiO2 11/15/20 22:20 97.5 131 18 117/77 (90) 97 Room Air Disposition: HOME, SELF-CARE Condition: Stable Johnnie Art MD Nov 15, 2020 22:44
--- NOTE | 2020-11-15 22:45 | NUR ---
ED Nurse Note: James catheter inserted aseptically; Urine specimen sent. 600-700mls of urine drained
[2020-11-15 23:00] VITALS: BP 118/84
[2020-11-15 23:18] LABS: APPEARANCE,URINE CLEAR; BILIRUBIN, URINE NEGATIVE (NEGATIVE); COLOR,URINE PALE YELLOW; GLUCOSE, URINE (UA) NEGATIVE (NEGATIVE); KETONES,URINE NEGATIVE (NEGATIVE); LEUKOCYTE ESTERASE ,URINE 1+ (NEGATIVE); NITRITE,URINE NEGATIVE (NEGATIVE); PH,URINE 7 (4.5-8.0); PROTEIN,URINE 1+ (NEGATIVE); UROBILINOGEN,URINE NORMAL MG/DL (0.0-1.0)
--- NOTE | 2020-11-16 | NUR ---
ED Nurse Note: Patient requested to be discharge with a urometer bag instead of a leg bag. Proper care and draining instructed and taught. ERMD aware. Verbalized understanding
--- NOTE | 2020-11-16 00:15 | NUR ---
ER DISCHARGE NOTE: Patient is cleared to be discharged per ERMD, pt is aox4, on room air, with stable vital signs. pt was given dc and prescription instructions, pt was able to verbalize understanding, pt id band removed. pt is able to ambulate with steady gait. pt took all belongings.
[2020-11-16 00:45] VITALS: BP 118/84
== END 2020-11-16 00:47 | disposition home or self-care (01) ==
LOC: EMR 22:15
DX: R33.9 Retention of urine, unspecified (principal); I10 Essential (primary) hypertension; E11.9 Type 2 diabetes mellitus without complications; N40.0 Benign prostatic hyperplasia without lower urinary tract symptoms
CPT/HCPCS: 81003; 99283